=== PATIENT | male | born 1965 | race Caucasian/White ===

== ENCOUNTER 2017-04-09 11:00 | Emergency (ER) | payer OTHER ==
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
[2017-04-09] MEDS ORDERED: methylPREDNISolone Sod Succ/PF 125 MG/2 ML VIAL ONE (11:15)
--- NOTE | 2017-04-09 12:04 | RAD ---
CHEST 1 VIEW: HISTORY: Shortness of breath. Dyspnea. COMPARISON: Chest 1 view 03/09/17. FINDINGS: Lungs are clear. No pneumothorax or effusion. Cardiac silhouette and mediastinal contours are with in normal limits. IMPRESSION: No acute intrathoracic abnormality. No significant change. POS: [facility]
== END 2017-04-09 11:45 | disposition home or self-care (01) ==
LOC: ERS 11:00
DX: J44.1 Chronic obstructive pulmonary disease with (acute) exacerbation (principal); F17.210 Nicotine dependence, cigarettes, uncomplicated; F41.9 Anxiety disorder, unspecified; H54.40 Blindness, one eye, unspecified eye
CPT/HCPCS: 71010; 93005; 94660; 94760; 96374; J2930

== ENCOUNTER 2017-04-20 08:34 | Emergency (ER) | payer OTHER ==
[2017-04-20 09:01] LABS: #Basophils 0.1 thou/uL (0.0-0.2); #Eosinphils 0.4 thou/uL (0.0-0.7); #Neutrophils 8.4 thou/uL (1.40-6.50); %Basophils 0.7 % (0.0-1.0); %Eosinophils 2.8 % (0.0-10.0); %Lymphocytes 31.3 % (21.0-51.0); %Monocytes 12.3 % (0.0-10.0); Hematocrit 48.5 % (42.0-52.0); Red Blood Cell (RBC) Count 4.93 mill/uL (4.70-6.10); White Blood Cell (WBC) Count 15.9 thou/uL (4.8-10.8)
[2017-04-20 09:18] LABS: ALT (SGPT) 28 U/L (8-55); AST (SGOT) 21 U/L (5-34); Alkaline Phosphatase 81 U/L (40-150); Anion Gap 11 mmol/L (10-20); BUN (Urea Nitrogen) 13 mg/dL (8.4-25.7); Bilirubin, Total 0.5 mg/dL (0.2-1.2); Calc. Creatinine Clearance 0 mL/min (70-130); Calcium 8.7 mg/dL (7.8-10.44); Carbon Dioxide 23 mmol/L (22-29); Chloride 106 mmol/L (98-107); Estimated GFR-MDRD 83; Protein, Total 6.7 g/dL (6.0-8.3)
[2017-04-20 09:25] LABS: Troponin I Less than 0.010 ng/mL (< 0.028)
--- NOTE | 2017-04-20 09:33 | RAD ---
PORTABLE AP CHEST X-RAY: 04/20/2017 HISTORY: Shortness of breath. COMPARISON: 04/09/2017 FINDINGS: The cardiac silhouette and pulmonary vasculature are within normal limits. The lungs remain clear. There has been no interval change from prior study. IMPRESSION: No acute cardiopulmonary process. POS: [facility]
== END 2017-04-20 10:50 | disposition home or self-care (01) ==
LOC: ERS 08:34
DX: J44.1 Chronic obstructive pulmonary disease with (acute) exacerbation (principal); H54.40 Blindness, one eye, unspecified eye; F41.9 Anxiety disorder, unspecified; F17.210 Nicotine dependence, cigarettes, uncomplicated; Z79.899 Other long term (current) drug therapy
CPT/HCPCS: 36415; 71010; 80053; 82553; 83880; 84484; 85025; 93005

== ENCOUNTER 2017-04-30 08:34 | Emergency (ER) | payer OTHER ==
[2017-04-30] MEDS ORDERED: Water For Inject, Bacteriostat 30 ML ONE (08:44)
[2017-04-30] MEDS ORDERED: methylPREDNISolone Sod Succ/PF 125 MG/2 ML VIAL ONE (08:44)
== END 2017-04-30 09:17 | disposition home or self-care (01) ==
LOC: ERS 08:34
DX: J44.1 Chronic obstructive pulmonary disease with (acute) exacerbation (principal); F41.9 Anxiety disorder, unspecified; F17.210 Nicotine dependence, cigarettes, uncomplicated
CPT/HCPCS: 93005; 94640; 96374; J2930; J7620

== ENCOUNTER 2017-05-22 08:13 | Emergency (ER) | payer OTHER ==
[2017-05-22] MEDS ORDERED: Lorazepam 2 MG/ML VIAL ONE (08:34)
[2017-05-22 08:57] LABS: #Basophils 0.1 thou/uL (0.0-0.2); #Eosinphils 0.3 thou/uL (0.0-0.7); #Lymphocytes 2.9 thou/uL (1.20-3.40); #Monocytes 1.2 thou/uL (0.11-0.59); #Neutrophils 7.7 thou/uL (1.40-6.50); %Basophils 0.6 % (0.0-1.0); %Eosinophils 2.1 % (0.0-10.0); %Lymphocytes 24.1 % (21.0-51.0); Hematocrit 48.5 % (42.0-52.0); Mean Platelet Volume 6.1 fL (7.4-10.4); Red Blood Cell (RBC) Count 4.93 mill/uL (4.70-6.10); White Blood Cell (WBC) Count 12.2 thou/uL (4.8-10.8)
--- NOTE | 2017-05-22 09:17 | RAD ---
PORTABLE CHEST: HISTORY: Shortness of breath. COMPARISON: 05/10/17 study. FINDINGS: Heart size and mediastinum are within normal limits. The lungs are clear of infiltrates. No signifi cant bony findings. IMPRESSION: No active intrathoracic disease. POS: [facility]
[2017-05-22 09:21] LABS: Troponin I Less than 0.010 ng/mL (< 0.028)
[2017-05-22 09:23] LABS: ALT (SGPT) 31 U/L (8-55); AST (SGOT) 25 U/L (5-34); Alkaline Phosphatase 74 U/L (40-150); Anion Gap 12 mmol/L (10-20); BUN (Urea Nitrogen) 13 mg/dL (8.4-25.7); Bilirubin, Total 0.5 mg/dL (0.2-1.2); CK (CPK) 95 U/L (30-200); Calc. Creatinine Clearance 0 mL/min (70-130); Calcium 8.9 mg/dL (7.8-10.44); Carbon Dioxide 27 mmol/L (22-29); Chloride 104 mmol/L (98-107); Estimated GFR-MDRD 89; Globulin 2.9 g/dL (2.4-3.5); Protein, Total 6.7 g/dL (6.0-8.3)
[2017-05-22] MEDS ORDERED: methylPREDNISolone Sod Succ/PF 125 MG/2 ML VIAL ONE (10:04)
[2017-05-22] MEDS ORDERED: Water For Inject, Bacteriostat 30 ML ONE (10:05)
== END 2017-05-22 10:22 | disposition home or self-care (01) ==
LOC: ERS 08:13
DX: J44.1 Chronic obstructive pulmonary disease with (acute) exacerbation (principal); F17.210 Nicotine dependence, cigarettes, uncomplicated; Z79.52 Long term (current) use of systemic steroids; Z79.899 Other long term (current) drug therapy
CPT/HCPCS: 36415; 71010; 80053; 82553; 83880; 84484; 85025; 87040; 93005; 94640; 96374; 96375; 99406; J2060; J2930; J7620

== ENCOUNTER 2017-05-31 07:24 | Emergency (ER) | payer OTHER ==
[2017-05-31] MEDS ORDERED: predniSONE 20 MG TAB ONE (07:51)
== END 2017-05-31 07:55 | disposition home or self-care (01) ==
LOC: ERS 07:24
DX: J44.0 Chronic obstructive pulmonary disease with (acute) lower respiratory infection (principal); F41.9 Anxiety disorder, unspecified; F17.210 Nicotine dependence, cigarettes, uncomplicated; Z79.899 Other long term (current) drug therapy
CPT/HCPCS: 99284; J7506

== ENCOUNTER 2017-06-09 07:20 | Emergency (ER) | payer OTHER ==
[2017-06-09] MEDS ORDERED: Water For Inject, Bacteriostat 30 ML ONE (07:37)
[2017-06-09] MEDS ORDERED: methylPREDNISolone Sod Succ/PF 125 MG/2 ML VIAL ONE (07:37)
[2017-06-09] MEDS ORDERED: Lorazepam 2 MG/ML VIAL ONE (08:00)
[2017-06-09 08:01] LABS: #Basophils 0.1 thou/uL (0.0-0.2); #Eosinphils 0.1 thou/uL (0.0-0.7); #Lymphocytes 3.9 thou/uL (1.20-3.40); #Monocytes 1.5 thou/uL (0.11-0.59); #Neutrophils 7.9 thou/uL (1.40-6.50); %Eosinophils 0.6 % (0.0-10.0); %Lymphocytes 29.1 % (21.0-51.0); %Monocytes 10.9 % (0.0-10.0); Hematocrit 46.9 % (42.0-52.0); Mean Platelet Volume 6.2 fL (7.4-10.4); Red Blood Cell (RBC) Count 4.75 mill/uL (4.70-6.10); White Blood Cell (WBC) Count 13.5 thou/uL (4.8-10.8)
[2017-06-09 08:28] LABS: ALT (SGPT) 27 U/L (8-55); AST (SGOT) 18 U/L (5-34); Alkaline Phosphatase 68 U/L (40-150); Anion Gap 10 mmol/L (10-20); BUN (Urea Nitrogen) 18 mg/dL (8.4-25.7); Bilirubin, Total 0.5 mg/dL (0.2-1.2); Calc. Creatinine Clearance 0 mL/min (70-130); Calcium 8.9 mg/dL (7.8-10.44); Carbon Dioxide 25 mmol/L (22-29); Chloride 106 mmol/L (98-107); Estimated GFR-MDRD Greater than 90; Globulin 2.6 g/dL (2.4-3.5); Protein, Total 6.4 g/dL (6.0-8.3)
[2017-06-09 08:32] LABS: Troponin I Less than 0.010 ng/mL (< 0.028)
--- NOTE | 2017-06-09 08:47 | RAD ---
PORTABLE UPRIGHT FRONTAL CHEST: Date: 06/09/17 COMPARISON: 05/22/17. HISTORY: COPD exacerbation. FINDINGS: There is attenuation of the bronchopulmonary vasculature and pulmonary hyperinflation with increased linear interstitial density, consistent with the provided history of COPD. No pneumothorax, pleural f luid, focal consolidation, or alveolar edema. IMPRESSION: Hyperinflated lungs with increased interstitial density. No focal consolidation or alveolar edema. POS: [facility]
--- NOTE | 2017-06-13 17:06 | EKG ---
Test Reason : Blood Pressure : / mmHG Vent. Rate : 075 BPM Atrial Rate : 075 BPM P-R Int : 176 ms QRS Dur : 074 ms QT Int : 352 ms P-R-T Axes : 083 -19 027 degrees QTc Int : 393 ms Normal sinus rhythm Normal ECG Confirmed by PALMIRA SPANN ([id number]), map editor PEYMAN RASHID ([id number]) on 06/13/2017 5:05:54 PM Referred By: MARIA INES Confirmed By:PALMIRA SPANN
== END 2017-06-09 11:39 | disposition short-term general hospital (02) ==
LOC: ERS 07:20
DX: J44.1 Chronic obstructive pulmonary disease with (acute) exacerbation (principal); F41.9 Anxiety disorder, unspecified; F17.210 Nicotine dependence, cigarettes, uncomplicated
CPT/HCPCS: 36415; 71010; 80053; 82553; 83605; 84484; 85025; 93005; 94640; 94660; 94760; 96374; 96375; J2060; J2930; J7620

== ENCOUNTER 2017-06-19 08:28 | Emergency (ER) | payer OTHER | END 2017-06-19 08:57 | disposition home or self-care (01) | LOC: ERS 08:28 | DX: L72.3 Sebaceous cyst (principal); R06.2 Wheezing; J43.9 Emphysema, unspecified; H54.7 Unspecified visual loss; F41.9 Anxiety disorder, unspecified; F17.210 Nicotine dependence, cigarettes, uncomplicated | CPT/HCPCS: 99282 ==

== ENCOUNTER 2017-06-24 08:25 | Emergency (ER) | payer OTHER | END 2017-06-24 08:50 | disposition home or self-care (01) | LOC: ERS 08:25 | DX: L72.3 Sebaceous cyst (principal); J44.9 Chronic obstructive pulmonary disease, unspecified; F41.9 Anxiety disorder, unspecified; F17.210 Nicotine dependence, cigarettes, uncomplicated; Z79.899 Other long term (current) drug therapy | CPT/HCPCS: 99281 ==

== ENCOUNTER 2017-06-28 06:26 | Emergency (ER) | payer OTHER ==
[2017-06-28] MEDS ORDERED: Dexamethasone 4 MG TAB ONE (06:36)
[2017-06-28] MEDS ORDERED: Magnesium Sulfate 2 GM/100 ML BAG ONE (06:36)
[2017-06-28] MEDS ORDERED: Dexamethasone 10 MG/ML VIAL ONE (06:37)
[2017-06-28 06:46] LABS: Oxyhemoglobin 96.7 % (94.0-97.0); Sodium 138 mmol/L (135-148)
[2017-06-28 06:47] LABS: Modified Allen's Test POSITIVE; Vent NO
[2017-06-28] MEDS ORDERED: Albuterol Sulfate 2.5 mg/0.5 ml Neb ONE (06:58)
[2017-06-28 07:06] LABS: #Basophils 0.1 thou/uL (0.0-0.2); #Eosinphils 0.3 thou/uL (0.0-0.7); #Lymphocytes 3.3 thou/uL (1.20-3.40); #Monocytes 1.2 thou/uL (0.11-0.59); #Neutrophils 6.5 thou/uL (1.40-6.50); %Basophils 0.9 % (0.0-1.0); %Eosinophils 2.5 % (0.0-10.0); %Monocytes 10.6 % (0.0-10.0); Mean Platelet Volume 6.3 fL (7.4-10.4); Red Blood Cell (RBC) Count 4.74 mill/uL (4.70-6.10); White Blood Cell (WBC) Count 11.3 thou/uL (4.8-10.8)
[2017-06-28 07:27] LABS: ALT (SGPT) 34 U/L (8-55); AST (SGOT) 24 U/L (5-34); Alkaline Phosphatase 74 U/L (40-150); Anion Gap 11 mmol/L (10-20); BUN (Urea Nitrogen) 12 mg/dL (8.4-25.7); Bilirubin, Total 0.7 mg/dL (0.2-1.2); CK (CPK) 97 U/L (30-200); Calc. Creatinine Clearance 0 mL/min (70-130); Calcium 8.8 mg/dL (7.8-10.44); Carbon Dioxide 24 mmol/L (22-29); Chloride 106 mmol/L (98-107); Estimated GFR-MDRD Greater than 90; Globulin 2.6 g/dL (2.4-3.5); Lipase 29 U/L (8-78); Protein, Total 6.5 g/dL (6.0-8.3)
[2017-06-28 07:31] LABS: Troponin I 0.011 ng/mL (< 0.028)
--- NOTE | 2017-06-28 10:57 | RAD ---
AP VIEW CHEST: Date: 06/28/17 HISTORY: Dyspnea. FINDINGS: Comparison made to previous exam from 06/09/17. AP view of chest demonstrates the lungs to be well aerated. No evidence of active intrathoracic disea se is seen. No evidence of effusions, pneumonia, or pneumothorax seen. IMPRESSION: Unremarkable AP view of chest. POS: [facility]
== END 2017-06-28 08:07 | disposition home or self-care (01) ==
LOC: ERS 06:26
DX: J44.1 Chronic obstructive pulmonary disease with (acute) exacerbation (principal); F41.9 Anxiety disorder, unspecified; F17.210 Nicotine dependence, cigarettes, uncomplicated
CPT/HCPCS: 36415; 71010; 80053; 82550; 82553; 82805; 83605; 83690; 83880; 84484; 85025; 87040; 93005; 94640; 94660; 96365; 96375; 99406; J1100; J3475; J7611; J7620; J8540

== ENCOUNTER 2017-07-04 06:29 | Emergency (ER) | payer OTHER ==
[2017-07-04] MEDS ORDERED: methylPREDNISolone Sod Succ/PF 125 MG/2 ML VIAL ONE (06:39)
== END 2017-07-04 06:54 | disposition home or self-care (01) ==
LOC: ERS 06:29
DX: J44.1 Chronic obstructive pulmonary disease with (acute) exacerbation (principal); F41.9 Anxiety disorder, unspecified; F17.210 Nicotine dependence, cigarettes, uncomplicated
CPT/HCPCS: 96374; J2930

== ENCOUNTER 2017-07-05 00:40 | Emergency (ER) | payer OTHER | END 2017-07-05 02:35 | disposition home or self-care (01) | LOC: ERS 00:40 | DX: F41.9 Anxiety disorder, unspecified (principal); J43.9 Emphysema, unspecified; F17.210 Nicotine dependence, cigarettes, uncomplicated | CPT/HCPCS: 96374; 99406; J2930 ==

== ENCOUNTER 2017-07-18 08:20 | Emergency (ER) | payer OTHER ==
[2017-07-18] MEDS ORDERED: methylPREDNISolone Sod Succ/PF 125 MG/2 ML VIAL ONE (08:59)
[2017-07-18] MEDS ORDERED: Sterile Water 10 ML ONE (08:59)
--- NOTE | 2017-08-01 18:41 | EKG ---
Test Reason : SOB Blood Pressure : / mmHG Vent. Rate : 068 BPM Atrial Rate : 068 BPM P-R Int : 166 ms QRS Dur : 082 ms QT Int : 348 ms P-R-T Axes : 057 -27 028 degrees QTc Int : 370 ms Normal sinus rhythm Normal ECG Confirmed by MILAGROS CARSON MD ([id number]), editorial project manager PEYMAN RASHID ([id number]) on 08/01/2017 6:40:23 PM Referred By: Confirmed By:MILAGROS CARSON MD
== END 2017-07-18 09:48 | disposition home or self-care (01) ==
LOC: ERS 08:20
DX: J44.1 Chronic obstructive pulmonary disease with (acute) exacerbation (principal); F41.9 Anxiety disorder, unspecified; F17.210 Nicotine dependence, cigarettes, uncomplicated; Z79.899 Other long term (current) drug therapy
CPT/HCPCS: 93005; 94640; 94760; 96374; 99406; A4216; J2930; J7620

== ENCOUNTER 2017-07-25 08:07 | Emergency (ER) | payer OTHER | END 2017-07-25 09:00 | disposition left against medical advice (07) | LOC: ERS 08:07 | DX: R50.9 Fever, unspecified (principal); J44.9 Chronic obstructive pulmonary disease, unspecified; F41.9 Anxiety disorder, unspecified; F17.210 Nicotine dependence, cigarettes, uncomplicated; Z79.899 Other long term (current) drug therapy | CPT/HCPCS: 99283 ==

== ENCOUNTER 2017-08-19 08:18 | Emergency (ER) | payer OTHER ==
[2017-08-19] MEDS ORDERED: methylPREDNISolone Sod Succ/PF 125 MG/2 ML VIAL ONE (08:39)
== END 2017-08-19 09:35 | disposition home or self-care (01) ==
LOC: ERS 08:18
DX: J44.1 Chronic obstructive pulmonary disease with (acute) exacerbation (principal); F17.210 Nicotine dependence, cigarettes, uncomplicated; Z79.899 Other long term (current) drug therapy
CPT/HCPCS: 94640; 94760; 96374; J2930; J7620

== ENCOUNTER 2017-08-21 06:48 | Emergency (ER) | payer OTHER ==
[2017-08-21] MEDS ORDERED: Ibuprofen 200 MG TAB ONE (07:41)
[2017-08-21 07:47] LABS: White Blood Cell (WBC) Count 22.4 thou/uL (4.8-10.8)
--- NOTE | 2017-08-21 07:47 | RAD ---
PORTABLE CHEST 1 VIEW: Date: 08/21/17 Time: 0739 hours HISTORY: Dyspnea. FINDINGS/IMPRESSION: Comparison made with exam of 06/28/17. The heart size is normal. No lobar consolidation, pneumothorax, or pleural effusions are seen. There is prominence of the interstitial markings. POS: [facility]
[2017-08-21 08:06] LABS: Band 2 % (5-11); Hemoglobin 15.4 g/dL (14.0-18.0); Lymphocytes 9 % (21-51); MDiff Complete? YES; Mean Corpuscular HGB CONC 34.2 g/dL (32.0-36.0); Mean Corpuscular Hemoglobin 33.7 pg (27.0-31.0); Mean Corpuscular Volume 98.4 fl (80.0-94.0); Mean Platelet Volume 6.1 fL (7.4-10.4); Monocytes 3 % (0-10); Neutrophil 82 % (42-75); Platelet Count 346 thou/uL (130-400); RBC Distribution Width 12.7 % (11.5-14.5); RBC Morphology Normal; Reactive Lymphocytes 4 % (0-10); Red Blood Cell (RBC) Count 4.59 mill/uL (4.70-6.10)
[2017-08-21 08:07] LABS: ALT (SGPT) 29 U/L (8-55); AST (SGOT) 16 U/L (5-34); Alkaline Phosphatase 82 U/L (40-150); Anion Gap 12 mmol/L (10-20); BUN (Urea Nitrogen) 10 mg/dL (8.4-25.7); Bilirubin, Total 1.3 mg/dL (0.2-1.2); Calc. Creatinine Clearance 0 mL/min (70-130); Calcium 9.2 mg/dL (7.8-10.44); Carbon Dioxide 25 mmol/L (22-29); Chloride 104 mmol/L (98-107); Estimated GFR-MDRD Greater than 90; Globulin 2.8 g/dL (2.4-3.5); Glucose 85 mg/dL (70-105); Potassium 4.1 mmol/L (3.5-5.1); Protein, Total 6.8 g/dL (6.0-8.3); Sodium 137 mmol/L (136-145)
[2017-08-21] MEDS ORDERED: predniSONE 20 MG TAB ONE (08:58)
== END 2017-08-21 08:57 | disposition home or self-care (01) ==
LOC: ERS 06:48
DX: J40 Bronchitis, not specified as acute or chronic (principal); F41.9 Anxiety disorder, unspecified; F17.210 Nicotine dependence, cigarettes, uncomplicated; Z79.52 Long term (current) use of systemic steroids
CPT/HCPCS: 36415; 71045; 80053; 85025; 87804; 94640; J7506; J7620

== ENCOUNTER 2017-08-22 07:25 | Observation (INO) | payer OTHER ==
[2017-08-22] MEDS ORDERED: methylPREDNISolone Sod Succ/PF 125 MG/2 ML VIAL ONE (07:46)
[2017-08-22 07:48] LABS: #Basophils 0.1 thou/uL (0.0-0.2); #Monocytes 3.1 thou/uL (0.11-0.59); #Neutrophils 20.3 thou/uL (1.40-6.50); %Basophils 0.2 % (0.0-1.0); %Eosinophils 0.1 % (0.0-10.0); %Lymphocytes 11.4 % (21.0-51.0); %Monocytes 11.7 % (0.0-10.0); %Neutrophils 76.6 % (42.0-75.0); Hemoglobin 15.4 g/dL (14.0-18.0); Mean Corpuscular HGB CONC 34.8 g/dL (32.0-36.0); Mean Corpuscular Hemoglobin 33.8 pg (27.0-31.0); Mean Corpuscular Volume 97.1 fl (80.0-94.0); Mean Platelet Volume 6.3 fL (7.4-10.4); Platelet Count 365 thou/uL (130-400); RBC Distribution Width 12.5 % (11.5-14.5); Red Blood Cell (RBC) Count 4.54 mill/uL (4.70-6.10); White Blood Cell (WBC) Count 26.5 thou/uL (4.8-10.8)
[2017-08-22 08:06] LABS: ALT (SGPT) 25 U/L (8-55); AST (SGOT) 17 U/L (5-34); Alkaline Phosphatase 78 U/L (40-150); Anion Gap 12 mmol/L (10-20); BUN (Urea Nitrogen) 14 mg/dL (8.4-25.7); Bilirubin, Total 1.1 mg/dL (0.2-1.2); Calc. Creatinine Clearance 0 mL/min (70-130); Calcium 9.3 mg/dL (7.8-10.44); Carbon Dioxide 23 mmol/L (22-29); Chloride 103 mmol/L (98-107); Estimated GFR-MDRD Greater than 90; Globulin 3.1 g/dL (2.4-3.5); Glucose 95 mg/dL (70-105); Potassium 3.8 mmol/L (3.5-5.1); Protein, Total 7.1 g/dL (6.0-8.3); Sodium 134 mmol/L (136-145)
--- NOTE | 2017-08-22 08:24 | RAD ---
CHEST 1 VIEW: History Dyspnea. COMPARISON: 08/21/17. FINDINGS: Cardiac silhouette is magnified by projection. Pulmonary vasculature is upper limits of normal. Ill -defined patchy parenchymal opacity is now present at each lung base and at the left perihilar level. There is no evidence of pneumothorax. Mediastinum is midline. IMPRESSION: Developing patchy infiltrates within each lung as detailed above. Clinical correlation regarding oth er signs and symptoms of developing bilateral pneumonitis is required. POS: [facility]
[2017-08-22 08:30] LABS: Actual Bicarbonate (HCO3a) 24.1 mEq/L (22-26); Base Excess (BEa) 0.3 mEq/L (0 (+/-) 2.5); CO2 Tension 36.3 mmHg (35.0-45.0); O2 Tension (PaO2) 174.6 mmHg (80.0-100.0); pH, Arterial 7.44 (7.35-7.45)
[2017-08-22 08:31] LABS: ALV-art Gradient 498.025 (0-20); Analyzer IN Cardio ER; Calcium, Ionized 1.2 mmol/L (1.12-1.30); Hematocrit-ABG 47.8 % (42.0-52.0); Puncture Site L.R.
[2017-08-22] MEDS ORDERED: Acetaminophen 500 MG TAB ONE (09:56)
[2017-08-22] MEDS ORDERED: Benzonatate 100 MG CAP ONE ×2 (09:57→09:58)
[2017-08-22] MEDS ORDERED: guaiFENesin/DM ER PO SCH (10:00)
[2017-08-22] MEDS ORDERED: cefTRIAXone\\ROCEPHIN 2 GM in Sodium Chloride 0.9% 100 ML IVPB SCH (10:00)
[2017-08-22] MEDS ORDERED: Benzonatate 100 MG CAP PO SCH (10:00)
[2017-08-22] MEDS ORDERED: Azithromycin 500 MG, Admixture Fee 1 EACH in Sodium Chloride 0.9% 250 ML 250 ML IVPB SCH (10:15)
[2017-08-22] MEDS ORDERED: Ondansetron HCl/PF 4 MG/2 ML Vial IVP PRN (12:49)
[2017-08-22] MEDS ORDERED: Ondansetron ODT 4 MG TAB PO PRN (12:50)
[2017-08-22] MEDS ORDERED: Acetaminophen 325 MG TAB PO PRN ×2 (12:50→12:58)
[2017-08-22] MEDS ORDERED: Senokot 8.6 MG TAB PO PRN (12:58)
[2017-08-22] MEDS ORDERED: Levofloxacin 750 mg/D5W 500 MG in Premix Bag 1 BAG IVPB SCH (13:00)
[2017-08-22] MEDS: Sodium Chloride 0.9% 1,000 ML IV SCH (13:30)
[2017-08-22 14:20] VITALS: BMI 28.8
--- NOTE | 2017-08-22 15:22 | HP ---
REASON FOR ADMISSION: Acute on chronic COPD exacerbation. HISTORY OF PRESENT ILLNESS: The patient gives history of shortness of breath from last 2-3 days now, which has been progressively getting worse. He has come multiple times to emergency room. The kobi ent is known to be noncompliant and usually comes to the emergency room for nebulizations. He has a known history of COPD and continues to smoke and is noncompliant with inhalers and nebulizers/medicat ions. No fever as such. The patient states he is currently staying in a motel at present. He is cu rrently comfortable on 3 liters nasal cannula here in the ER. PAST MEDICAL AND SURGICAL HISTORY: History of COPD with ongoing smoking and noncompliance with medic ations, anxiety disorder, right second finger surgery. CURRENT MEDICATIONS: The patient states that he takes inhalers and he cannot recall the name. He do es not take any other medications. ALLERGIES: No known drug allergies. PERSONAL HISTORY: He continues to smoke half to one pack a day. The patient denies any substance ab use at present. States he quit cocaine more than a year ago. Does not abuse alcohol. Currently, he is staying in a motel. FAMILY HISTORY: Brother has a history of coronary artery disease. There is also history of COPD and cancer in the family. REVIEW OF SYSTEMS: The following complete review of systems was negative, unless otherwise mentioned in the HPI or below: Constitutional: Weight loss or gain, ability to conduct usual activities. Sk in: Rash, itching. Eyes: Double vision, pain. ENT/Mouth: Nose bleeding, neck stiffness, pain, te nderness. Cardiovascular: Palpitations, dyspnea on exertion, orthopnea. Respiratory: Shortness of breath, wheezing, cough, hemoptysis, fever or night sweats. Gastrointestinal: Poor appetite, abdom inal pain, heartburn, nausea, vomiting, constipation, or diarrhea. Genitourinary: Urgency, frequenc y, dysuria, nocturia. Musculoskeletal: Pain, swelling. Neurologic/Psychiatric: Anxiety, depressio n. Allergy/Immunologic: Skin rash, bleeding tendency. PHYSICAL EXAMINATION: GENERAL: The patient is a 52-year-old male who is currently not in any acute distress. VITAL SIGNS: Blood pressure 170/112, pulse 100 per minute, respiratory rate 26 per minute, temperatu re 98.5 degrees Fahrenheit, saturating 94% on 2 liters nasal cannula. NECK: Supple. No elevated JVD. HEENT: Extraocular muscles intact. Pupils reacting to light. Oral cavity, mucous membranes are dry . No exudates or congestion. CARDIOVASCULAR: S1, S2 heard. Regular rhythm. RESPIRATORY: Air entry 1+ bilaterally. Scattered wheezes plus bilaterally. ABDOMEN: Soft. Bowel sounds heard. No tenderness, rigidity or guarding. EXTREMITIES: No peripheral edema or calf tenderness. VASCULAR SYSTEM: Peripheral pulses 1+ bilateral. No ischemic ulcerations or gangrene. CENTRAL NERVOUS SYSTEM: No gross focal deficits seen. The patient is alert, awake, oriented well. PSYCHIATRIC: The patient's mood is euthymic. No hallucinations or delusions. LABORATORY AND X-RAY FINDINGS: White count of 26, H and H 15 and 44, platelet count 365,000 with 76% neutrophils. Blood gas done shows a pH of 7.4, pCO2 36, pO2 174. BUN 14, creatinine 0.8, glucose i s 95. Liver enzymes within normal limits. Albumin is 4.0. Chest x-ray done shows questionable patc hy infiltrates. CLINICAL IMPRESSION AND PLAN: The patient will be under observation on medical floor for acute on ch ronic, chronic obstructive pulmonary disease exacerbation. It is unclear if he has pneumonia. The x -ray most likely shows chronic fibrotic changes in the lungs. He will be placed on DuoNeb q.6 hourly , Solu-Medrol 40 mg IV q.6 hourly and empiric Levaquin for now. He will be on Pepcid 20 mg twice keisha ly as well. We will gently hydrate him with normal saline at 50 mL per hour. We will closely monito r him on medical floor.
[2017-08-22] MEDS: Guaifenesin DM 100-10/5 ML UDCUP PO PRN ×2 (16:07→19:37)
[2017-08-22] MEDS: Mometasone/Formoterol 120 PUFF INHALER INH SCH (19:25)
[2017-08-22] MEDS: Famotidine 20 MG TAB PO SCH (19:37)
[2017-08-23 04:29] LABS: #Lymphocytes 1.2 thou/uL (1.20-3.40); #Monocytes 1.1 thou/uL (0.11-0.59); #Neutrophils 18.8 thou/uL (1.40-6.50); %Basophils 0.2 % (0.0-1.0); %Eosinophils 0.1 % (0.0-10.0); %Lymphocytes 5.7 % (21.0-51.0); %Neutrophils 89.1 % (42.0-75.0); Hemoglobin 14.5 g/dL (14.0-18.0); Mean Corpuscular HGB CONC 33.4 g/dL (32.0-36.0); Mean Corpuscular Hemoglobin 32.7 pg (27.0-31.0); Mean Corpuscular Volume 98.1 fl (80.0-94.0); Mean Platelet Volume 6.3 fL (7.4-10.4); Platelet Count 371 thou/uL (130-400); RBC Distribution Width 12.2 % (11.5-14.5); Red Blood Cell (RBC) Count 4.44 mill/uL (4.70-6.10); White Blood Cell (WBC) Count 21.2 thou/uL (4.8-10.8)
[2017-08-23 04:51] LABS: Anion Gap 10 mmol/L (10-20); BUN (Urea Nitrogen) 15 mg/dL (8.4-25.7); Calc. Creatinine Clearance 143 mL/min (70-130); Calcium 9.2 mg/dL (7.8-10.44); Carbon Dioxide 25 mmol/L (22-29); Chloride 105 mmol/L (98-107); Estimated GFR-MDRD Greater than 90; Glucose 138 mg/dL (70-105); Potassium 4.3 mmol/L (3.5-5.1); Sodium 136 mmol/L (136-145)
[2017-08-23] MEDS: Sodium Chloride 0.9% 1,000 ML IV SCH (05:12)
[2017-08-23] MEDS: Mometasone/Formoterol 120 PUFF INHALER INH SCH ×2 (07:20→18:08)
[2017-08-23] MEDS: Guaifenesin DM 100-10/5 ML UDCUP PO PRN (08:19)
[2017-08-23] MEDS: Famotidine 20 MG TAB PO SCH ×2 (08:19→19:19)
[2017-08-23] MEDS: Enoxaparin Sodium 40 MG/0.4 ML SYRINGE SC SCH (08:19)
[2017-08-23] MEDS ORDERED: Zolpidem Tartrate 5 MG TAB PO PRN (09:57)
[2017-08-23] MEDS ORDERED: Guaifenesin DM 100-10/5 ML UDCUP PO SCH (10:08)
--- NOTE | 2017-08-23 10:52 | PRG ---
DATE OF SERVICE: 08/23/2017 SUBJECTIVE: The patient seen and examined at bedside. He is still very short of breath. He has abi e cough, which is productive of yellowish phlegm. He took shower this morning and he was able to mendez dle this despite of quite significant amount of shortness of breath he is still presenting. OBJECTIVE: VITAL SIGNS: Blood pressure is 133/85, pulse is 88, respiration rate 24, O2 saturation is 93% on 2 l iters by nasal cannula. His temperature is 97.7. HEENT: Atraumatic, normocephalic. Right eye is blind. Conjunctivae pinkish. Sclerae nonicteric. Oral mucosa is moist. NECK: Supple, no lymphadenopathy. LUNGS: With few rales bilaterally, no wheezing. CARDIOVASCULAR: S1, S2 normal, no S3, no S4, no any murmur. ABDOMEN: Soft, nontender, bowel sounds are present, no organomegaly. EXTREMITIES: No clubbing, cyanosis or edema. NEUROLOGIC: He is alert and oriented x4. There is no sensorimotor deficit. Cranial nerves are inta ct. LABORATORY DATA: White count is 21.2, hemoglobin 14.5, hematocrit 43.5, platelet count is 371, 89.1% neutrophils. Normal chemistry, glucose 138. Microbiology: Two blood cultures are negative so far. Gram stain his sputum is pending. IMPRESSION: Exacerbation of chronic obstructive pulmonary disease. I do not think he has pneumonia. PLAN: We will continue his IV steroids. We will continue DuoNebs. We will continue his Levaquin an d inhaled steroids. We will continue his IV normal saline at 50 mL per hour. We will start him on A mbien 5 mg at bedtime p.r.n. for insomnia if he complains about the problem and we will obtain chest x-ray tomorrow morning and continue O2.
[2017-08-23] MEDS: Guaifenesin DM 100-10/5 ML UDCUP PO SCH ×3 (12:55→21:16)
[2017-08-24] MEDS: Guaifenesin DM 100-10/5 ML UDCUP PO SCH ×3 (00:11→10:22)
[2017-08-24] MEDS: Sodium Chloride 0.9% 1,000 ML IV SCH (05:40)
[2017-08-24] MEDS: Mometasone/Formoterol 120 PUFF INHALER INH SCH (06:23)
[2017-08-24 08:01] VITALS: BP 139/97; TEMP 97.7
[2017-08-24] MEDS: Famotidine 20 MG TAB PO SCH (09:29)
[2017-08-24] MEDS: Enoxaparin Sodium 40 MG/0.4 ML SYRINGE SC SCH (09:29)
--- NOTE | 2017-08-24 22:57 | DIS ---
DATE OF ADMISSION: 08/22/2017 DATE OF DISCHARGE: 08/24/2017 DISCHARGE DIAGNOSES: Acute on chronic respiratory failure with hypoxia, COPD exacerbation. SECONDARY DIAGNOSES: Anxiety disorder, medication nonadherence. HOSPITAL COURSE: Mr. Antonieta Peterson is a 52-year-old male, who presented to the emergency room with shortness of breath for 2 days' duration, which was getting progressively worse. He has be en at the emergency room several times with the same presentation. He is known to be noncompliant an d comes to the emergency room for nebulizations. He has a history of COPD and continues to smoke and does not take his inhalers or nebulizers as prescribed. There is no history of fever. He has chron ic respiratory failure and uses 2.5 liters of oxygen at home. HOSPITAL COURSE: He was admitted for acute on chronic respiratory failure with hypoxia, started on o xygen supplementation, nebulizer therapy, steroids, and antibiotics. He improved with medications an d by 08/24/2017, he felt well enough to leave. He was back to his home oxygen requirements (was satu rating well on 2 liters of home oxygen and states that he has all his medications and nebulizers at [facility]). 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 Patient was stable on physical examination and had no acute issues. No wheezing on examination and was deemed stable for discharge. He was encour aged to take all his medications as prescribed and to quit smoking. DISCHARGE MEDICATIONS: Guaifenesin 50 mg q.4 h., Levofloxacin 250 mg daily, ipratropium/albuterol guerrero lfate 3 mL nebulizer 4 times daily as needed, albuterol sulfate 0.63 mg nebulizers every 4 hours as n eeded for shortness of breath and wheezing, prednisone 60 mg orally every morning with breakfast. PHYSICAL EXAMINATION: He was examined on the day of discharge. VITAL SIGNS: Stable. GENERAL: Not in acute distress, lying comfortably in bed. HEENT: Normocephalic, atraumatic. Moist mucous membrane. EOMI, PERRLA. NECK: Supple. Full range of motion. RESPIRATORY: Vesicular breath sound bilaterally. No wheezing or rales. CARDIOVASCULAR: S1, S2 only with no murmurs, rubs, or gallops. ABDOMEN: Bowel sounds positive, nontender, nondistended, no organomegaly. MUSCULOSKELETAL: No skeletal abnormalities. Moves all extremities spontaneously. SKIN: Warm and well perfused. No rashes or lesions. NEUROLOGIC: Alert and well oriented. No focal deficit. PSYCHIATRIC: Normal mood and affect. LABORATORY DATA: CBC showed leukocytosis (steroid induced, otherwise unremarkable). Serum chemistry also unremarkable. IMAGING: Chest x-ray done on day of admission showed developing patchy infiltrates within each lung base and at the left perihilar level. CONSULTS: None. CONDITION AT DISCHARGE: Stable and improved. PROCEDURES: None. DIET: Regular. CARE GOALS: To follow up with his primary care physician within 1 week of discharge. The patient is advised to take his medications as prescribed and return to the emergency room if he developed short ness of breath, fever, loss of consciousness, chest pain, or lightheadedness. ACTIVITY: To resume as tolerated. DISCHARGE TIME: 65 minutes including chart review and documentation.
== END 2017-08-24 10:28 | disposition home or self-care (01) ==
LOC: ERS 07:25 → 2SW 12:42
PROVIDERS: ADMIT Internal Medicine; ATTEND Internal Medicine
DX: J96.21 Acute and chronic respiratory failure with hypoxia (principal); J44.1 Chronic obstructive pulmonary disease with (acute) exacerbation; F41.9 Anxiety disorder, unspecified; F17.210 Nicotine dependence, cigarettes, uncomplicated; Z91.14 Patient's other noncompliance with medication regimen; Z99.81 Dependence on supplemental oxygen; Z79.52 Long term (current) use of systemic steroids; Z98.890 Other specified postprocedural states
CPT/HCPCS: 36415; 71045; 80048; 80053; 82805; 85025; 87040; 87070; 87205; 93005; 94640; 94664; 94760; 96361; 96365; 96366; 96367; 96372; 96375; 96376; A4216; G0378; J0456; J0696; J1650; J1956; J2920; J2930; J7050; J7620

== ENCOUNTER 2017-09-05 06:32 | Emergency (ER) | payer OTHER | END 2017-09-05 06:52 | disposition home or self-care (01) | LOC: ERS 06:32 | DX: J44.9 Chronic obstructive pulmonary disease, unspecified (principal); F41.9 Anxiety disorder, unspecified; F17.210 Nicotine dependence, cigarettes, uncomplicated | CPT/HCPCS: 99284 ==

== ENCOUNTER 2017-09-26 09:19 | Emergency (ER) | payer OTHER ==
[2017-09-26] MEDS ORDERED: methylPREDNISolone Sod Succ/PF 125 MG/2 ML VIAL ONE (09:48)
[2017-09-26] MEDS ORDERED: Sterile Water 10 ML ONE (09:48)
[2017-09-26] MEDS ORDERED: Albuterol Sulfate 2.5 mg/0.5 ml Neb ONE (09:50)
[2017-09-26] MEDS ORDERED: Albuterol Sulfate 2.5 mg/3 ml Neb ONE (09:50)
--- NOTE | 2017-09-26 10:43 | RAD ---
CHEST 1 VIEW: Date: 09/26/17 COMPARISON: 08/22/17. HISTORY: Cough. FINDINGS: Normal cardiac silhouette. Pulmonary vessels and hilum are normal. Costophrenic angles are clear. No consolidation or mass. Patchy reticulonodular opacities. No pneumothorax or osseous abnormalities. IMPRESSION: Patchy reticulonodular opacities. Continued surveillance is recommended. POS: [facility]
== END 2017-09-26 10:08 | disposition home or self-care (01) ==
LOC: ERS 09:19
DX: J44.1 Chronic obstructive pulmonary disease with (acute) exacerbation (principal); F41.9 Anxiety disorder, unspecified; F17.210 Nicotine dependence, cigarettes, uncomplicated
CPT/HCPCS: 71045; 94644; 94760; 96374; A4216; J2930; J7611

== ENCOUNTER 2017-10-06 07:39 | Inpatient (IN) | payer OTHER ==
--- NOTE | 2017-10-06 08:21 | RAD ---
PORTABLE CHEST: History: Dyspnea. Comparison: 09-26-17 FINDINGS: Lung hodgson are clear. No infiltrate. Heart and mediastinum unremarkable. No evidence of vascular con gestion or edema. IMPRESSION: No acute process identified. POS: [facility]
[2017-10-06 08:25] LABS: #Basophils 0.1 thou/uL (0.0-0.2); #Eosinphils 0.2 thou/uL (0.0-0.7); #Lymphocytes 4.4 thou/uL (1.20-3.40); #Monocytes 1.4 thou/uL (0.11-0.59); %Basophils 0.8 % (0.0-1.0); %Eosinophils 1.6 % (0.0-10.0); %Lymphocytes 33.6 % (21.0-51.0); %Monocytes 10.7 % (0.0-10.0); %Neutrophils 53.2 % (42.0-75.0); Hemoglobin 15.2 g/dL (14.0-18.0); Mean Corpuscular HGB CONC 33.2 g/dL (32.0-36.0); Mean Corpuscular Hemoglobin 32.6 pg (27.0-31.0); Mean Corpuscular Volume 98.4 fl (80.0-94.0); Mean Platelet Volume 6.2 fL (7.4-10.4); Platelet Count 377 thou/uL (130-400); RBC Distribution Width 12.4 % (11.5-14.5); Red Blood Cell (RBC) Count 4.65 mill/uL (4.70-6.10); White Blood Cell (WBC) Count 13.1 thou/uL (4.8-10.8)
[2017-10-06 08:44] LABS: ALT (SGPT) 31 U/L (8-55); AST (SGOT) 20 U/L (5-34); Alkaline Phosphatase 74 U/L (40-150); Anion Gap 9 mmol/L (10-20); BUN (Urea Nitrogen) 11 mg/dL (8.4-25.7); Bilirubin, Total 0.4 mg/dL (0.2-1.2); CK (CPK) 94 U/L (30-200); Calc. Creatinine Clearance 0 mL/min (70-130); Calcium 9.2 mg/dL (7.8-10.44); Carbon Dioxide 27 mmol/L (22-29); Chloride 108 mmol/L (98-107); Estimated GFR-MDRD 77; Globulin 2.5 g/dL (2.4-3.5); Glucose 105 mg/dL (70-105); Potassium 3.8 mmol/L (3.5-5.1); Protein, Total 6.5 g/dL (6.0-8.3); Sodium 140 mmol/L (136-145)
[2017-10-06 08:45] LABS: CKMB 2.2 ng/mL (0-6.6); Troponin I Less than 0.010 ng/mL (< 0.028)
--- NOTE | 2017-10-06 10:23 | HP ---
PRIMARY CARE PHYSICIAN: [facility] call admission. REASON FOR ADMISSION: Respiratory distress due to COPD exacerbation. HISTORY OF PRESENT ILLNESS: A 52-year-old male who has severe COPD who has multiple admissions in [facility] for COPD exacerbation with most recent admission in 08/2017. Patient reports that because of weather change and allergy, he was having upper respiratory symptoms including runny nose, dry co ugh and sore throat and symptoms progressed for last few days with increasing shortness of breath, wh eezing. He was not able to take deep breath. He was trying his home medication, but that was not he lping. The patient also reported that he was not smoking, but he was not improving, he was having a coughing spell and shortness of breath and headache. Because of excessive amount of cough, he was al so hurting in his chest wall. He was feeling dizzy with a coughing spell. He was feeling diaphoreti c as well. He denies any pleuritic chest pain. He denies any hemoptysis. He denies any lower extre mity edema or calf tenderness. He denies any fever or chills, but he was getting very brown scant am ount of sputum with excessive coughing. Last night, patient's condition had gotten worse and that is why he had to call paramedics. Patient was given initially CPAP treatment, DuoNeb therapy and Solu-Medrol as well as magnesium sulfate. [facility] and [facility] treatment, patient was not improving and that is why we d ecided to keep this patient in hospital for admission. ALLERGIES: No known drug allergy. CURRENT HOME MEDICATIONS: The patient does not have any medication with him at this point, but he is on albuterol nebulization q.4 hourly p.r.n., DuoNeb q.6 hourly, and Robitussin p.r.n. basis. REVIEW OF SYSTEMS: The following complete review of systems was negative, unless otherwise mentioned in the HPI or below: Constitutional: Weight loss or gain, ability to conduct usual activities. Skin: Rash, itching. Eyes: Double vision, pain. ENT/Mouth: Nose bleeding, neck stiffness, pain, tenderness. Cardiovascular: Palpitations, dyspnea on exertion, orthopnea. Respiratory: Shortness of breath, wheezing, cough, hemoptysis, fever or night sweats. Gastrointestinal: Poor appetite, abdominal pain, heartburn, nausea, vomiting, constipation, or diarr hea. Genitourinary: Urgency, frequency, dysuria, nocturia. Musculoskeletal: Pain, swelling. Neurologic/Psychiatric: Anxiety, depression. Allergy/Immunologic: Skin rash, bleeding tendency. Please see my HPI for pertinent positive and negative. All other review of systems reviewed and nega tive except as mentioned in the HPI. PAST MEDICAL HISTORY: Severe chronic obstructive pulmonary disease, ongoing intermittent tobacco abu se, noncompliance with treatment. PAST PSYCHIATRIC HISTORY: Anxiety disorder. PAST SURGICAL HISTORY: Right second finger surgery. SOCIAL HISTORY: Patient has history of smoking about half pack per day, but he smokes variable numbe r of cigarettes. The patient also has a remote history of cocaine abuse in the past, but he currentl y denies. Patient drinks alcohol socially and occasionally. FAMILY HISTORY: Brother has history of coronary artery disease, COPD, and cancer runs among several family members. EMERGENCY ROOM COURSE TREATMENT: Ambulance gave him DuoNeb therapy, CPAP, Solu-Medrol 125 mg and mag nesium sulfate. In the emergency room, patient was given aspirin and Levaquin therapy. PHYSICAL EXAMINATION: VITAL SIGNS: Currently, blood pressure 156/100, pulse 76, respiratory rate 34, temperature 97.7, sat uration 99% on 2-3 liters oxygen, weight 90.7 kilograms. GENERAL: Patient is currently alert, awake, mild respiratory distress. HEAD: Normocephalic, atraumatic. EYES: Pupils round, reactive to light. Extraocular muscle intact. ENT: Oropharynx within normal limits. Moist mucous membranes, no oral lesion, no pharyngeal erythem a, no exudate. NECK: Supple, no JVD, no thyromegaly, no carotid bruit, no meningeal signs of irritation. LUNGS: Bilateral end expiratory wheezing. Air entry reduced, pursed lip breathing, able to talk in short sentences. No accessory muscles of respiration in use. CARDIAC: S1 and S2 regular, tachycardia, no murmur, no gallop, no rub. ABDOMEN: Soft, bowel sounds present, nontender, nondistended. No organomegaly, no mass, no suprapub ic tenderness. BACK: Examination unremarkable, no CVA tenderness. EXTREMITIES: Upper extremity passive movements of all joints are normal. Lower extremities: No maggie ma. Good peripheral pulsation. SKIN: No skin rash. HEMATOLOGICAL SYSTEM: No lymphadenopathy. PSYCHIATRIC: Anxious affect. IMAGING DATA AND SIGNIFICANT LABORATORY DATA: 1. EKG showing normal sinus rhythm within normal limits. 2. Chest x-ray based on my review, no acute cardiopulmonary process. 3. CBC: WBC 13.1, hemoglobin 15.2, platelet 377,000, MCV 98.4. 4. BMP: Sodium 140, potassium 3.8, chloride 108, carbon dioxide 27, anion gap 9, BUN 11, creatinine 1.01, glucose 105, calcium 9.2. 5. LFT: AST 20, ALT 31, alkaline phosphatase 74, albumin 4.0, CK 794, CK-MB 2.2, troponin I less th an 0.010, BNP 37.4. ASSESSMENT AND PLAN/IMPRESSION: 1. Respiratory distress, acute due to chronic obstructive pulmonary disease exacerbation. 2. Chronic obstructive pulmonary disease exacerbation, acute on chronic. Patient has underlying sev ere chronic obstructive pulmonary disease as well as ongoing intermittent tobacco abuse disorder. Th is episode is precipitated by allergy symptoms as well as recent upper respiratory infection. This p atient had failed emergency room and outpatient ambulance treatment and he is still in respiratory di stress. We will require admission to the hospital. We will monitor his oxygen saturation. We will continue oxygen to keep saturation above 92%. During hospital course, we will treat him with Solu-Me drol 40 mg IV q.6 hourly, DuoNeb therapy every 4 hourly an as needed basis, Pulmicort nebulization tw ice daily, Mucinex 600 mg 3 times daily, empiric antibiotic therapy with Levaquin 500 mg IV daily and symptomatic treatment. Upon discharge, patient will need tapering doses of prednisone. 3. Tobacco abuse disorder. Smoking cessation counseling given. While in hospital if needed, we keny l use nicotine patch. 4. Alcohol abuse. The patient is given counseling to avoid alcohol abuse. We will continue with mu ltivitamin therapy while in hospital. 5. Anxiety disorder. We will continue Xanax 0.25 mg p.o. q.i.d. p.r.n. while in hospital. 6. Deep venous thrombosis prophylaxis, Lovenox 40 mg subcu daily. 7. Gastrointestinal prophylaxis, Pepcid 20 mg p.o. b.i.d. 8. Code status: The patient is FULL CODE. Patient does not have any surrogate decision maker. Disposition plan based on clinical course. Based on severity of illness, we are expecting patient's stay in hospital more than 2 midnights. Plan of care discussed with the patient in detail.
[2017-10-06] MEDS ORDERED: Lorazepam 2 MG/ML VIAL ONE (10:44)
[2017-10-06] MEDS ORDERED: hydrALAZINE 20 MG/ML VIAL SLOW IVP PRN (10:51)
[2017-10-06] MEDS ORDERED: cloNIDine 0.1 MG TAB PO PRN (10:51)
[2017-10-06] MEDS ORDERED: Chloraseptic Spray 180 ml Bottle PO PRN (10:51)
[2017-10-06] MEDS ORDERED: Acetaminophen 325 MG TAB PO PRN (10:51)
[2017-10-06] MEDS ORDERED: Artificial Tears 18 DROP/0.9 ML EA EYE PRN (10:51)
[2017-10-06] MEDS ORDERED: Senokot 8.6 MG TAB PO PRN (10:51)
[2017-10-06] MEDS ORDERED: Ondansetron ODT 4 MG TAB PO PRN (10:51)
[2017-10-06] MEDS ORDERED: ALPRAZolam 0.25 MG TAB PO PRN (10:51)
[2017-10-06] MEDS ORDERED: Loperamide HCl 2 MG CAP PO PRN (10:51)
[2017-10-06] MEDS ORDERED: Mag-Al 1200 mg/1200 mg/30 ML UDCUP PO PRN (10:51)
[2017-10-06] MEDS ORDERED: Milk Of Magnesia 30 ML UDCUP PO PRN (10:51)
[2017-10-06] MEDS ORDERED: Eucerin (Mineral Oil/Petrolatum,White) 30 gm Jar TOP PRN (10:51)
[2017-10-06] MEDS ORDERED: Zolpidem Tartrate 5 MG TAB PO PRN (10:51)
[2017-10-06] MEDS ORDERED: Diabetic Tussin 200 MG/10 ML UDCUP PO PRN (10:51)
[2017-10-06] MEDS ORDERED: Loratadine 10 MG TAB PO PRN (10:51)
[2017-10-06] MEDS ORDERED: HYDROcodone/Acetaminophen 5/325 mg Tablet PO PRN (10:51)
[2017-10-06] MEDS ORDERED: Ondansetron HCl/PF 4 MG/2 ML Vial IVP PRN (10:51)
[2017-10-06] MEDS ORDERED: Sodium Chloride 0.65% Nasal 44 ML BOT EA NARE PRN (10:51)
--- NOTE | 2017-10-06 13:26 | DIS ---
HOSPITAL COURSE: The patient was admitted by me earlier today. He was admitted for COPD exacerbatio n. Please see my HPI for further detail. He was in the emergency room and under ER hold condition. As he was not able to get medical bed and he was in the emergency room in his gurney that was making him uncomfortable and that is why patient decided to leave against medical advice, though he was not ready for discharge from the emergency room, but patient able to make his own decision and he left [facility].
[2017-10-06] MEDS ORDERED: guaiFENesin ER 600 MG TAB PO SCH (15:00)
[2017-10-06] MEDS ORDERED: Budesonide 0.5 MG/2 ML NEB INH SCH (18:30)
[2017-10-06] MEDS ORDERED: Famotidine 20 MG TAB PO SCH (21:00)
[2017-10-07] MEDS ORDERED: Enoxaparin Sodium 40 MG/0.4 ML SYRINGE SC SCH (09:00)
[2017-10-07] MEDS ORDERED: Multivitamin W/ Minerals 1 TAB PO SCH (09:00)
--- NOTE | 2017-10-10 21:35 | EKG ---
Test Reason : SOB Blood Pressure : / mmHG Vent. Rate : 072 BPM Atrial Rate : 072 BPM P-R Int : 164 ms QRS Dur : 084 ms QT Int : 362 ms P-R-T Axes : 065 012 049 degrees QTc Int : 396 ms Normal sinus rhythm Normal ECG Confirmed by FAIZA OSUZA M.D. ([id number]), department editor PEYMAN RASHID ([id number]) on 10/10/2017 9:34:41 PM Referred By: LIBBY Confirmed By:FAIZA SOUZA M.D.
== END 2017-10-06 12:20 | disposition left against medical advice (07) | DRG 192 ==
LOC: ERS 07:39 → ERHOLD 10:08
PROVIDERS: ADMIT Internal Medicine; ATTEND Internal Medicine
DX: J44.1 Chronic obstructive pulmonary disease with (acute) exacerbation (principal); F10.10 Alcohol abuse, uncomplicated; F17.210 Nicotine dependence, cigarettes, uncomplicated; Z91.19 Patient's noncompliance with other medical treatment and regimen; F41.9 Anxiety disorder, unspecified; F12.11 Cannabis abuse, in remission; F14.11 Cocaine abuse, in remission; R06.03 Acute respiratory distress
CPT/HCPCS: 36415; 71045; 80053; 82553; 83880; 84484; 85025; 93005; 94660; 94760; 96365; 96375; 99406; J1956; J2060

== ENCOUNTER 2017-10-08 07:02 | Emergency (ER) | payer OTHER ==
[2017-10-08] MEDS ORDERED: Albuterol Sulfate 2.5 mg/0.5 ml Neb ONE (07:09)
[2017-10-08] MEDS ORDERED: Albuterol Sulfate 2.5 mg/3 ml Neb ONE (07:10)
[2017-10-08 08:21] LABS: #Basophils 0.1 thou/uL (0.0-0.2); #Eosinphils 0.2 thou/uL (0.0-0.7); #Lymphocytes 4.3 thou/uL (1.20-3.40); #Monocytes 1.1 thou/uL (0.11-0.59); #Neutrophils 5.1 thou/uL (1.40-6.50); %Eosinophils 1.5 % (0.0-10.0); %Lymphocytes 39.5 % (21.0-51.0); %Monocytes 10.6 % (0.0-10.0); %Neutrophils 47.5 % (42.0-75.0); Hemoglobin 15.6 g/dL (14.0-18.0); Mean Corpuscular HGB CONC 33.2 g/dL (32.0-36.0); Mean Corpuscular Volume 99.3 fl (80.0-94.0); Mean Platelet Volume 6.3 fL (7.4-10.4); Platelet Count 374 thou/uL (130-400); RBC Distribution Width 12.7 % (11.5-14.5); Red Blood Cell (RBC) Count 4.72 mill/uL (4.70-6.10); White Blood Cell (WBC) Count 10.8 thou/uL (4.8-10.8)
[2017-10-08 08:39] LABS: Anion Gap 11 mmol/L (10-20); BUN (Urea Nitrogen) 16 mg/dL (8.4-25.7); Calc. Creatinine Clearance 0 mL/min (70-130); Calcium 8.7 mg/dL (7.8-10.44); Carbon Dioxide 27 mmol/L (22-29); Chloride 105 mmol/L (98-107); Estimated GFR-MDRD 87; Glucose 97 mg/dL (70-105); Potassium 3.7 mmol/L (3.5-5.1); Sodium 139 mmol/L (136-145)
[2017-10-08 08:45] LABS: CKMB 1.7 ng/mL (0-6.6); Troponin I Less than 0.010 ng/mL (< 0.028)
--- NOTE | 2017-10-08 09:10 | RAD ---
PORTABLE CHEST 1 VIEW: Date: 10/08/17 Time: 0717 hours HISTORY: Dyspnea. FINDINGS: Comparison made with exam of 10/05/17. The heart size is normal. The lungs are expanded without focal areas of consolidation, pneumothorax, or pleural effusions. IMPRESSION: No radiographic evidence of acute cardiopulmonary process. POS: [facility]
== END 2017-10-08 10:34 | disposition home or self-care (01) ==
LOC: ERS 07:02
DX: J44.1 Chronic obstructive pulmonary disease with (acute) exacerbation (principal); Z91.14 Patient's other noncompliance with medication regimen; H54.40 Blindness, one eye, unspecified eye; F41.9 Anxiety disorder, unspecified; F17.210 Nicotine dependence, cigarettes, uncomplicated
CPT/HCPCS: 36415; 71045; 80048; 82553; 83880; 84484; 85025; 93005; 94644; 94660; J7611

== ENCOUNTER 2017-10-17 06:58 | Emergency (ER) | payer OTHER ==
--- NOTE | 2017-10-17 08:35 | RAD ---
AP VIEW CHEST: HISTORY: Chest pain. FINDINGS: AP view chest is obtained on 10/17/17. Comparison is made to previous exam from 10/08/17. AP view chest demonstrates the lungs to be well aerated. No evidence of active intrathoracic disease is seen. No evidence of effusions, pneumonia, or pneumothorax is seen. IMPRESSION: Unremarkable AP view chest. POS: [facility]
== END 2017-10-17 07:40 | disposition home or self-care (01) ==
LOC: ERS 06:58
DX: J30.2 Other seasonal allergic rhinitis (principal); F41.9 Anxiety disorder, unspecified; J43.9 Emphysema, unspecified; H54.40 Blindness, one eye, unspecified eye; F17.210 Nicotine dependence, cigarettes, uncomplicated; Z79.52 Long term (current) use of systemic steroids
CPT/HCPCS: 71045; 93005

== ENCOUNTER 2017-10-18 13:47 | Emergency (ER) | payer OTHER ==
[2017-10-18] MEDS ORDERED: Albuterol Sulfate 2.5 mg/3 ml Neb ONE (14:13)
[2017-10-18] MEDS ORDERED: Albuterol Sulfate 2.5 mg/0.5 ml Neb ONE (14:13)
[2017-10-18 14:35] LABS: Hemoglobin 14.8 g/dL (14.0-18.0); Mean Corpuscular HGB CONC 33.8 g/dL (32.0-36.0); Mean Corpuscular Hemoglobin 32.4 pg (27.0-31.0); Mean Platelet Volume 6.2 fL (7.4-10.4); Platelet Count 319 thou/uL (130-400); RBC Distribution Width 12.5 % (11.5-14.5); Red Blood Cell (RBC) Count 4.57 mill/uL (4.70-6.10); White Blood Cell (WBC) Count 10.1 thou/uL (4.8-10.8)
[2017-10-18 14:44] LABS: ALT (SGPT) 29 U/L (8-55); AST (SGOT) 21 U/L (5-34); Albumin 3.9 g/dL (3.5-5.0); Alkaline Phosphatase 71 U/L (40-150); Anion Gap 10 mmol/L (10-20); BUN (Urea Nitrogen) 15 mg/dL (8.4-25.7); Bilirubin, Total 0.4 mg/dL (0.2-1.2); Calc. Creatinine Clearance 0 mL/min (70-130); Calcium 9.1 mg/dL (7.8-10.44); Carbon Dioxide 26 mmol/L (22-29); Chloride 107 mmol/L (98-107); Estimated GFR-MDRD 78; Globulin 2.5 g/dL (2.4-3.5); Glucose 114 mg/dL (70-105); Potassium 4.2 mmol/L (3.5-5.1); Protein, Total 6.4 g/dL (6.0-8.3); Sodium 139 mmol/L (136-145)
[2017-10-18 14:47] LABS: CKMB 3.1 ng/mL (0-6.6); Troponin I Less than 0.010 ng/mL (< 0.028)
[2017-10-18 15:00] LABS: Band 2 % (5-11); Lymphocytes 23 % (21-51); MDiff Complete? YES; Monocytes 6 % (0-10); Neutrophil 68 % (42-75); PLT Morphology Comment Appears Adequate; Reactive Lymphocytes 1 % (0-10)
--- NOTE | 2017-10-18 15:48 | RAD ---
AP CHEST: History: Dyspnea. Shortness of breath. Date: 10-18-17 Comparison: 10-17-17 FINDINGS: The lungs are well aerated. No evidence of active intrathoracic disease seen. No evidence of effusion s, pneumonia, or pneumothorax is seen. IMPRESSION: Unremarkable AP chest. Not significantly changed since the previous radiograph from one day earlier. POS: [facility]
--- NOTE | 2017-11-28 23:25 | EKG ---
Test Reason : Blood Pressure : / mmHG Vent. Rate : 072 BPM Atrial Rate : 072 BPM P-R Int : 158 ms QRS Dur : 092 ms QT Int : 356 ms P-R-T Axes : 059 -13 050 degrees QTc Int : 389 ms Normal sinus rhythm Normal ECG Confirmed by RONNY KUMAR, KADIE Galindo ([id number]), newspaper copy editor PEYMAN RASHID ([id number]) on 11/28/2017 11:24:40 PM Referred By: Confirmed By:KADIE JEFFERSON MD
== END 2017-10-18 15:13 | disposition home or self-care (01) ==
LOC: ERS 13:47
DX: J44.1 Chronic obstructive pulmonary disease with (acute) exacerbation (principal); F41.9 Anxiety disorder, unspecified; F17.210 Nicotine dependence, cigarettes, uncomplicated
CPT/HCPCS: 36415; 71045; 80053; 82553; 83880; 84484; 85025; 93005; 94644; J7611

== ENCOUNTER → 2018-01-14 | Emergency (ER) | payer OTHER ==
[~2018-01-14] MED LIST: predniSONE 20 MG TAB ONE
--- NOTE | 2018-01-14 08:42 | RAD ---
PORTABLE CHEST 1 VIEW: DATE: 01/14/18. TIME: 5:37 a.m. HISTORY: Dyspnea. FINDINGS: Comparison is made with the exam of 10/18/17. The heart size is normal. The lungs are expanded without focal areas of consolidation, pneumothorax, or pleural effusions. A small hiatal hernia is present. IMPRESSION: No radiographic evidence of acute cardiopulmonary process. POS: [facility]
== END ==
LOC: ERS 04:52
DX: J44.1 Chronic obstructive pulmonary disease with (acute) exacerbation (principal); F41.9 Anxiety disorder, unspecified; Z87.891 Personal history of nicotine dependence
CPT/HCPCS: 71045; 93005; 94640; 96360; 96361; J7506; J7620

== ENCOUNTER 2018-02-08 08:26 | Emergency (ER) | payer OTHER ==
[2018-02-08 10:36] LABS: #Basophils 0.1 thou/uL (0.0-0.2); #Eosinphils 0.1 thou/uL (0.0-0.7); #Lymphocytes 1.2 thou/uL (1.20-3.40); #Monocytes 0.3 thou/uL (0.11-0.59); #Neutrophils 5.5 thou/uL (1.40-6.50); %Basophils 0.7 % (0.0-1.0); %Eosinophils 1.9 % (0.0-10.0); %Lymphocytes 17.1 % (21.0-51.0); %Monocytes 3.6 % (0.0-10.0); %Neutrophils 76.6 % (42.0-75.0); Hemoglobin 16.4 g/dL (14.0-18.0); Mean Corpuscular HGB CONC 34.5 g/dL (32.0-36.0); Mean Corpuscular Hemoglobin 32.5 pg (27.0-31.0); Mean Corpuscular Volume 94.4 fL (78.0-98.0); Mean Platelet Volume 5.9 fL (7.4-10.4); Platelet Count 350 thou/uL (130-400); RBC Distribution Width 11.9 % (11.5-14.5); Red Blood Cell (RBC) Count 5.05 mill/uL (4.70-6.10); White Blood Cell (WBC) Count 7.2 thou/uL (4.8-10.8)
[2018-02-08 10:57] LABS: ALT (SGPT) 36 U/L (8-55); AST (SGOT) 29 U/L (5-34); Albumin 4.1 g/dL (3.5-5.0); Alkaline Phosphatase 76 U/L (40-150); Anion Gap 13 mmol/L (10-20); BUN (Urea Nitrogen) 10 mg/dL (8.4-25.7); Bilirubin, Total 1.1 mg/dL (0.2-1.2); Calc. Creatinine Clearance 0 mL/min (70-130); Calcium 9.4 mg/dL (7.8-10.44); Carbon Dioxide 25 mmol/L (22-29); Chloride 106 mmol/L (98-107); Estimated GFR-MDRD 80; Globulin 2.8 g/dL (2.4-3.5); Glucose 106 mg/dL (70-105); Potassium 4.5 mmol/L (3.5-5.1); Protein, Total 6.9 g/dL (6.0-8.3); Sodium 139 mmol/L (136-145)
--- NOTE | 2018-02-08 10:59 | RAD ---
PORTABLE AP CHEST RADIOGRAPH: Date: 02-08-18 History: Dyspnea, respiratory distress. Comparison: 01-14-18 FINDINGS: Cardiac silhouette and pulmonary vasculature are within normal limits. Lungs are expanded and clear. There has been no interval change from prior exam. IMPRESSION: No acute cardiopulmonary process. Chest is stable from prior exam. POS: [facility]
[2018-02-08 11:02] LABS: CKMB 1.9 ng/mL (0-6.6); Troponin I Less than 0.010 ng/mL (< 0.028)
--- NOTE | 2018-02-20 10:57 | EKG ---
Test Reason : Blood Pressure : / mmHG Vent. Rate : 074 BPM Atrial Rate : 074 BPM P-R Int : 156 ms QRS Dur : 088 ms QT Int : 380 ms P-R-T Axes : 084 -30 033 degrees QTc Int : 421 ms Normal sinus rhythm with sinus arrhythmia Left axis deviation Abnormal ECG Confirmed by ORQUIDEA MARIE DO ([id number]), city editor SELENA WINKLER ([id number]) on 02/20/2018 10:56:56 AM Referred By: Confirmed By:ORQUIDEA MARIE DO
== END 2018-02-08 11:51 | disposition home or self-care (01) ==
LOC: ERS 08:26
DX: J44.1 Chronic obstructive pulmonary disease with (acute) exacerbation (principal); F41.9 Anxiety disorder, unspecified; I49.9 Cardiac arrhythmia, unspecified; Z87.891 Personal history of nicotine dependence
CPT/HCPCS: 36415; 71045; 80053; 82553; 84484; 85025; 93005; 94660

== ENCOUNTER 2018-02-27 07:00 | Emergency (ER) | payer OTHER ==
[2018-02-27] MEDS ORDERED: hydrOXYzine Pamoate 25 mg Capsule ONE (07:32)
[2018-02-27] MEDS ORDERED: Azithromycin 250 MG TAB ONE (07:36)
--- NOTE | 2018-02-27 07:45 | RAD ---
PORTABLE CHEST: HISTORY: Shortness of breath. FINDINGS: Lung hodgson are clear. No infiltrate. Vascular markings normal. Heart and mediastinum unremarkable . IMPRESSION: No acute abnormality. POS: [facility]
[2018-02-27] MEDS ORDERED: Albuterol Sulfate 2.5 mg/0.5 ml Neb ONE ×2 (07:50→07:51)
[2018-02-27 08:06] LABS: #Basophils 0.1 thou/uL (0.0-0.2); #Eosinphils 0.3 thou/uL (0.0-0.7); #Lymphocytes 3.4 thou/uL (1.20-3.40); #Monocytes 1.1 thou/uL (0.11-0.59); #Neutrophils 4.9 thou/uL (1.40-6.50); %Basophils 0.9 % (0.0-1.0); %Eosinophils 3.5 % (0.0-10.0); %Lymphocytes 34.3 % (21.0-51.0); %Monocytes 11.4 % (0.0-10.0); %Neutrophils 49.9 % (42.0-75.0); Hemoglobin 15.6 g/dL (14.0-18.0); Mean Corpuscular HGB CONC 34.8 g/dL (32.0-36.0); Mean Corpuscular Hemoglobin 32.9 pg (27.0-31.0); Mean Corpuscular Volume 94.5 fL (78.0-98.0); Mean Platelet Volume 6.1 fL (7.4-10.4); Platelet Count 347 thou/uL (130-400); RBC Distribution Width 12.3 % (11.5-14.5); Red Blood Cell (RBC) Count 4.74 mill/uL (4.70-6.10); White Blood Cell (WBC) Count 9.8 thou/uL (4.8-10.8)
[2018-02-27 08:22] LABS: ALT (SGPT) 32 U/L (8-55); AST (SGOT) 22 U/L (5-34); Alkaline Phosphatase 81 U/L (40-150); Anion Gap 12 mmol/L (10-20); BUN (Urea Nitrogen) 14 mg/dL (8.4-25.7); Bilirubin, Total 0.8 mg/dL (0.2-1.2); Calc. Creatinine Clearance 0 mL/min (70-130); Calcium 9.3 mg/dL (7.8-10.44); Carbon Dioxide 27 mmol/L (22-29); Chloride 105 mmol/L (98-107); Estimated GFR-MDRD 90; Globulin 2.7 g/dL (2.4-3.5); Glucose 103 mg/dL (70-105); Protein, Total 6.7 g/dL (6.0-8.3); Sodium 140 mmol/L (136-145)
[2018-02-27 08:27] LABS: CKMB 2.3 ng/mL (0-6.6); Troponin I Less than 0.010 ng/mL (< 0.028)
== END 2018-02-27 09:19 | disposition home or self-care (01) ==
LOC: ERS 07:00
DX: J44.1 Chronic obstructive pulmonary disease with (acute) exacerbation (principal); F41.9 Anxiety disorder, unspecified; Z87.891 Personal history of nicotine dependence; Z79.899 Other long term (current) drug therapy
CPT/HCPCS: 36415; 71045; 80053; 82553; 83880; 84484; 85025; 93005; J7611; J7620; Q0177

== ENCOUNTER 2018-03-24 07:52 | Emergency (ER) | payer OTHER ==
[2018-03-24 08:13] LABS: Actual Bicarbonate (HCO3a) 19.9 mEq/L (22-28); Base Excess (BEa) -4.1 mEq/L (-2.0 to +3.0); Carboxyhemoglobin (COHb) 1.1 gm% (0.0-3.0); Hemoglobin (Hb) 16.8 g/dL (14.0-18.0); O2 Tension (PaO2) 107.4 mmHg (80.0-100.0); pH, Arterial 7.39 (7.35-7.45)
[2018-03-24 08:14] LABS: Analyzer IN Cardio ER; Puncture Site RRA
[2018-03-24 08:14] LABS: #Basophils 0.1 thou/uL (0.0-0.2); #Eosinphils 0.3 thou/uL (0.0-0.7); #Lymphocytes 3.8 thou/uL (1.20-3.40); #Monocytes 1.4 thou/uL (0.11-0.59); #Neutrophils 5.2 thou/uL (1.40-6.50); %Basophils 1.3 % (0.0-1.0); %Eosinophils 3.2 % (0.0-10.0); %Monocytes 12.5 % (0.0-10.0); Hemoglobin 15.9 g/dL (14.0-18.0); Mean Corpuscular HGB CONC 32.5 g/dL (32.0-36.0); Mean Corpuscular Hemoglobin 30.7 pg (27.0-31.0); Mean Corpuscular Volume 94.5 fL (78.0-98.0); Mean Platelet Volume 6.3 fL (7.4-10.4); Platelet Count 382 thou/uL (130-400); RBC Distribution Width 12.4 % (11.5-14.5); Red Blood Cell (RBC) Count 5.19 mill/uL (4.70-6.10); White Blood Cell (WBC) Count 10.9 thou/uL (4.8-10.8)
[2018-03-24 08:35] LABS: ALT (SGPT) 33 U/L (8-55); AST (SGOT) 26 U/L (5-34); Albumin 4.2 g/dL (3.5-5.0); Alkaline Phosphatase 83 U/L (40-150); Anion Gap 11 mmol/L (10-20); BUN (Urea Nitrogen) 14 mg/dL (8.4-25.7); Bilirubin, Total 1.2 mg/dL (0.2-1.2); CK (CPK) 105 U/L (30-200); Calc. Creatinine Clearance 0 mL/min (70-130); Calcium 8.7 mg/dL (7.8-10.44); Carbon Dioxide 24 mmol/L (22-29); Chloride 107 mmol/L (98-107); Estimated GFR-MDRD Greater than 90; Globulin 2.8 g/dL (2.4-3.5); Glucose 102 mg/dL (70-105); Lipase 49 U/L (8-78); Potassium 4.1 mmol/L (3.5-5.1); Sodium 138 mmol/L (136-145)
[2018-03-24 08:39] LABS: CKMB 1.9 ng/mL (0-6.6); Troponin I Less than 0.010 ng/mL (< 0.028)
--- NOTE | 2018-03-24 09:31 | RAD ---
AP VIEW CHEST: INDICATIONS: History of dyspnea. COMPARISON: 02/27/2018 FINDINGS: The lungs are clear. The cardiomediastinal silhouette is within normal limits. No acute osseous abn ormality is evident. IMPRESSION: No acute abnormality. POS: [facility]
--- NOTE | 2018-03-24 13:53 | HP-2 ---
DATE OF SERVICE: 03/24/2018 PRIMARY CARE PHYSICIAN: Mitchell Priest D.O. RESIDENT: Carroll Smith M.D. ATTENDING PHYSICIAN: Gabe Durbin M.D. CODE STATUS: DNR. A lengthy discussion was had with the patient who desired no resuscitative measures performed in the event of cardiac or acute respiratory distress. CHIEF COMPLAINT: Dyspnea on exertion. "I cannot breathe." HISTORY OF PRESENT ILLNESS: Mr. Fung is a pleasant, but unfortunate 53- year-old male with past medical history of COPD and polysubstance abuse with an extensive smoking history. He presents with a 4-day history of progressively worsening dyspnea on exertion and shortness of breath, headache and anxiety. He states that one of his children has been causing a lot of trouble for him and he has been trying to provide social and financial support. He states that when his anxiety worsens, he becomes angry and is unable to calm himself down which leads to worsening of his baseline respiratory status. He specifically denies fevers, chills or chest pain. He endorses nausea, vomiting, and diarrhea for the past 4 months. He states he has been out of his medications because he has been unable to go to the physician's office due to transportation issues. ER COURSE: While in the ER, the patient was seen and evaluated by Dr. Orly Leyva and while en route with EMS he received Solu-Medrol 125 mg, magnesium 2 grams, and DuoNebs. BiPAP was initiated by EMS and he was titrated off BiPAP while in the ER. In the ER, he had routine labs drawn along with an EKG and chest x-ray. PAST MEDICAL HISTORY: 1. COPD. 2. Polysubstance abuse. PAST SURGICAL HISTORY: Right second finger surgery. ALLERGIES: No known drug allergies. MEDICATIONS: Per clinic record. 1. Lorazepam 0.5 mg daily as needed. 2. Spiriva HandiHaler 18 mcg inhaled once daily. 3. Protonix 40 mg daily. 4. Nasacort 2 sprays to each nostril daily. 5. Albuterol nebulizer 2.5 mg q.4 hours p.r.n. 6. DuoNebs q.i.d. p.r.n. 7. Lexapro 10 mg daily. 8. Dulera 200/5 mcg 2 puffs b.i.d. FAMILY HISTORY: Positive for coronary artery disease, COPD and cancer. SOCIAL HISTORY: The patient endorses a 60+ pack year smoking history, but states he quit approximately 1 month ago. He has a history of polysubstance abuse and alcohol abuse. REVIEW OF SYSTEMS: GENERAL: Denies fevers, chills. EYES: Reports chronic vision loss in the right eye. Denies blurred vision or double vision. ENT: Denies sore throat, nasal discharge or congestion. CARDIOVASCULAR: Denies chest pain or palpitations. LUNGS: Reports worsening shortness of breath at rest and dyspnea on exertion. Denies cough. GI: Endorses nausea, vomiting, and diarrhea x4 months. GENITOURINARY: Denies discharge or dysuria. MUSCULOSKELETAL: Reports chronic back pain. PSYCHIATRIC: Endorses anxiety. Denies depression. Denies suicidal or homicidal ideation. NEUROLOGIC: Reports chronic numbness in his lower legs. Denies weakness. PHYSICAL EXAMINATION: VITAL SIGNS: Blood pressure 147/99, pulse 63, respiratory rate 21, O2 sat 98% on 2 liters nasal cannula. T-max 98.7. GENERAL: Mild respiratory distress. A&O x4, appropriately interactive. HEENT: Normocephalic, atraumatic. Left eye PERRLA with EOMI. Right eye has what appears to be a cataract, which the patient states is from previous eye trauma. He also has EOMI in the right eye. External ears and nose normal. Oropharynx reveals moist mucous membranes, poor dentition. The patient has pursed lip breathing. NECK: Supple, without lymphadenopathy, thyromegaly. CARDIOVASCULAR: Normal rate, regular rhythm without murmurs, rubs or gallops. Radial pulses and pedal pulses 2+ bilaterally. PULMONARY: Clear to auscultation bilaterally with decreased air movement throughout. No wheezing, rhonchi or rales noted, mild increased labored breathing. ABDOMEN: Soft, nontender. Bowel sounds x4 quadrants. MUSCULOSKELETAL: Moves all 4 limbs equally. No pain or tenderness. NEUROLOGIC: No gross focal deficits. Cranial nerves grossly intact. SKIN: Warm, dry, and intact without lesions. EXTREMITIES: No clubbing, cyanosis or edema. PSYCHIATRIC: Mood and affect are appropriate. LABORATORY DATA: 1. CBC: White blood cell count 10.9, hemoglobin 15.9, hematocrit 49.0, MCV 94.5, platelets 382, neutrophils 48.0%. 2. CMP: Sodium 138, potassium 4.1, chloride 107, bicarbonate 24, BUN 14, creatinine 0.86, glucose 102, calcium 8.9, bilirubin 1.2, AST 26, ALT 33, alkaline phosphatase 83. Total protein 10.0, albumin 4.2, globulin 2.8, Lipase 47. 3. Cardiac markers; CPK 105, CK-MB 1.9, troponin less than 0.010. BUN 23.5. 4. Arterial blood gas; pH 7.3, pCO2 34, pO2 107. Chest x-ray, no acute processes. EKG: Rate 63, normal sinus rhythm, no ST changes, normal T-wave progression. QTC interval 380. ASSESSMENT AND PLAN: Mr. Fung a 53-year-old male with past medical history of chronic obstructive pulmonary disease who presents with acute worsening of his shortness of breath and dyspnea on exertion requiring BiPAP by EMS. Initial laboratory evaluation was unremarkable and he is back to his baseline oxygen requirement. 1. Acute hypoxic respiratory failure secondary to chronic obstructive pulmonary disease exacerbation. The patient is currently off BiPAP and has received 1 round of steroids. We will start azithromycin 500 mg daily and continue 250 mg daily for 4 days. Scheduled DuoNebs q.4h. with q.2h. p.r.n. albuterol. We will restart home medications of Spiriva and Dulera. Continue supplemental oxygen with goal oxygen saturation between 88% and 92%. 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 2. History of polysubstance abuse. Denies drug use at this time. 3. Anxiety disorder. We will restart home Lexapro and provide p.r.n. lorazepam. 4. Diet: Regular. 5. Prophylaxis: Lovenox. 6. Code status: DNR. Again, lengthy discussion was had with the patient regarding his code status. 7. Poor social support network. Will have case management discuss Medicaid benefits and help him arrange outpatient follow up. 8. Diarrhea. We will check stool studies, fecal lactoferrin and Clostridium difficile. DISPOSITION AND ESTIMATED LENGTH STAY: He is admitted under inpatient status and admitted to the medical floor. Length of stay, likely greater than 2 midnights number. The history and physical exam and management of patient were discussed with Dr. Durbin who was in agreement. After I saw and examined the patient, he was transferred to the [facility] due to insurance purposes. The ER performed a [id number] discussion and arranged the transfer. [facility]
--- NOTE | 2018-03-27 17:59 | EKG ---
Test Reason : Blood Pressure : / mmHG Vent. Rate : 063 BPM Atrial Rate : 063 BPM P-R Int : 170 ms QRS Dur : 080 ms QT Int : 372 ms P-R-T Axes : 065 -24 038 degrees QTc Int : 380 ms Normal sinus rhythm Normal ECG Confirmed by LEVON BRADLEY MD ([id number]), development editor SELENA WINKLER ([id number]) on 03/27/2018 5:59:29 PM Referred By: Confirmed By:LEVON BRADLEY MD
== END 2018-03-24 14:12 | disposition short-term general hospital (02) ==
LOC: ERS 07:52
DX: J44.1 Chronic obstructive pulmonary disease with (acute) exacerbation (principal); F41.9 Anxiety disorder, unspecified; Z87.891 Personal history of nicotine dependence; Z79.899 Other long term (current) drug therapy
CPT/HCPCS: 36415; 71045; 80053; 82553; 82805; 83690; 83880; 84484; 85025; 93005; 94660

== ENCOUNTER 2018-05-29 07:35 | Emergency (ER) | payer OTHER ==
[2018-05-29] MEDS ORDERED: Ketorolac Tromethamine 30 MG/ML VIAL ONE (07:54)
== END 2018-05-29 08:18 | disposition home or self-care (01) ==
LOC: ERS 07:35
DX: M54.5 Low back pain (principal); J44.1 Chronic obstructive pulmonary disease with (acute) exacerbation; F41.9 Anxiety disorder, unspecified; Z87.891 Personal history of nicotine dependence; Z79.899 Other long term (current) drug therapy
CPT/HCPCS: 96374; J1885

== ENCOUNTER 2018-06-17 07:05 | Emergency (ER) | payer OTHER ==
[2018-06-17 07:36] LABS: #Basophils 0.1 thou/uL (0.0-0.2); #Eosinphils 0.5 thou/uL (0.0-0.7); #Lymphocytes 3.3 thou/uL (1.20-3.40); #Neutrophils 3.9 thou/uL (1.40-6.50); %Basophils 1.1 % (0.0-1.0); %Eosinophils 5.6 % (0.0-10.0); %Lymphocytes 36.9 % (21.0-51.0); %Monocytes 11.8 % (0.0-10.0); %Neutrophils 44.6 % (42.0-75.0); Hemoglobin 15.7 g/dL (14.0-18.0); Mean Corpuscular HGB CONC 34.4 g/dL (32.0-36.0); Mean Corpuscular Hemoglobin 33.1 pg (27.0-31.0); Mean Corpuscular Volume 96.1 fL (78.0-98.0); Mean Platelet Volume 6.3 fL (7.4-10.4); Platelet Count 391 thou/uL (130-400); RBC Distribution Width 12.3 % (11.5-14.5); Red Blood Cell (RBC) Count 4.74 mill/uL (4.70-6.10); White Blood Cell (WBC) Count 8.8 thou/uL (4.8-10.8)
[2018-06-17] MEDS ORDERED: Magnesium 2 GM/50 ML BAG (IN WATER) ONE (07:36)
[2018-06-17 08:10] LABS: ALT (SGPT) 33 U/L (8-55); AST (SGOT) 28 U/L (5-34); Albumin 3.9 g/dL (3.5-5.0); Alkaline Phosphatase 95 U/L (40-150); BUN (Urea Nitrogen) 7 mg/dL (8.4-25.7); Bilirubin, Total 0.5 mg/dL (0.2-1.2); Calc. Creatinine Clearance 0 mL/min (70-130); Calcium 8.9 mg/dL (7.8-10.44); Carbon Dioxide 25 mmol/L (22-29); Chloride 105 mmol/L (98-107); Estimated GFR-MDRD 70; Globulin 2.5 g/dL (2.4-3.5); Glucose 101 mg/dL (70-105); Magnesium 2.3 mg/dL (1.6-2.6); Potassium 4.3 mmol/L (3.5-5.1); Protein, Total 6.4 g/dL (6.0-8.3); Sodium 140 mmol/L (136-145)
[2018-06-17] MEDS ORDERED: Albuterol Sulfate 2.5 mg/3 ml Neb ONE (08:14)
[2018-06-17] MEDS ORDERED: Albuterol Sulfate 2.5 mg/0.5 ml Neb ONE (08:14)
--- NOTE | 2018-06-17 08:45 | RAD ---
CHEST 1 VIEW: Date: 06/17/18 HISTORY: Dyspnea. COMPARISON: 03/24/18. FINDINGS: Cardiac silhouette is magnified by projection. Pulmonary vasculature unremarkable. Mediastinum is mid line. No confluent air space consolidation or evidence of pneumothorax. compliance monitor leads overlie the chest. IMPRESSION: No active cardiopulmonary abnormalities are demonstrated. POS: [facility]
[2018-06-17 09:21] LABS: Anion Gap 14 mmol/L (10-20)
--- NOTE | 2018-06-19 13:57 | EKG ---
Test Reason : Blood Pressure : / mmHG Vent. Rate : 055 BPM Atrial Rate : 055 BPM P-R Int : 176 ms QRS Dur : 090 ms QT Int : 394 ms P-R-T Axes : 018 -21 013 degrees QTc Int : 376 ms Sinus bradycardia Otherwise normal ECG Confirmed by MILAGROS HELTON D.O. ([id number]), editorial clerk SELENA WINKLER ([id number]) on 06/19/2018 1:57:34 PM Referred By: Confirmed By:MILAGROS HELTON D.O.
== END 2018-06-17 09:00 | disposition home or self-care (01) ==
LOC: ERS 07:05
DX: J44.1 Chronic obstructive pulmonary disease with (acute) exacerbation (principal); Z87.891 Personal history of nicotine dependence; F41.9 Anxiety disorder, unspecified; Z79.899 Other long term (current) drug therapy; Z79.51 Long term (current) use of inhaled steroids
CPT/HCPCS: 36415; 71045; 80053; 83735; 83880; 85025; 87804; 93005; 94640; 96365; J7611

== ENCOUNTER 2018-06-24 07:32 | Emergency (ER) | payer OTHER | END 2018-06-24 08:34 | disposition home or self-care (01) | LOC: ERS 07:32 | DX: F41.9 Anxiety disorder, unspecified (principal); J44.9 Chronic obstructive pulmonary disease, unspecified; Z87.891 Personal history of nicotine dependence | CPT/HCPCS: 94640; J7620 ==

== ENCOUNTER 2018-07-23 08:53 | Emergency (ER) | payer OTHER ==
[2018-07-23] MEDS ORDERED: methylPREDNISolone Sod Succ/PF 125 MG/2 ML VIAL ONE (09:12)
[2018-07-23] MEDS ORDERED: Albuterol Sulfate 2.5 mg/0.5 ml Neb ONE ×2 (09:25→09:26)
[2018-07-23 09:28] LABS: #Basophils 0.1 thou/uL (0.0-0.2); #Eosinphils 0.4 thou/uL (0.0-0.7); #Lymphocytes 3.2 thou/uL (1.20-3.40); #Monocytes 1.1 thou/uL (0.11-0.59); #Neutrophils 5.2 thou/uL (1.40-6.50); %Basophils 1.4 % (0.0-1.0); %Eosinophils 3.8 % (0.0-10.0); %Lymphocytes 31.7 % (21.0-51.0); %Monocytes 11.1 % (0.0-10.0); Hemoglobin 16.3 g/dL (14.0-18.0); Mean Corpuscular Hemoglobin 30.5 pg (27.0-31.0); Mean Corpuscular Volume 95.4 fL (78.0-98.0); Mean Platelet Volume 6.7 fL (7.4-10.4); Platelet Count 396 thou/uL (130-400); RBC Distribution Width 12.1 % (11.5-14.5); Red Blood Cell (RBC) Count 5.35 mill/uL (4.70-6.10); White Blood Cell (WBC) Count 10.1 thou/uL (4.8-10.8)
[2018-07-23 09:48] LABS: Anion Gap 16 mmol/L (10-20); BUN (Urea Nitrogen) 7 mg/dL (8.4-25.7); Calc. Creatinine Clearance 0 mL/min (70-130); Calcium 9.6 mg/dL (7.8-10.44); Carbon Dioxide 24 mmol/L (22-29); Chloride 105 mmol/L (98-107); Estimated GFR-MDRD 86; Glucose 95 mg/dL (70-105); Potassium 4.1 mmol/L (3.5-5.1); Sodium 141 mmol/L (136-145)
--- NOTE | 2018-07-23 10:34 | RAD ---
PORTABLE UPRIGHT FRONTAL CHEST RADIOGRAPH: Date: 07/23/18 COMPARISON: 06/17/18. HISTORY: Dyspnea. FINDINGS: No pneumothorax or pleural fluid. No focal consolidation or alveolar edema. Mild diffuse stable incre ased linear interstitial density. IMPRESSION: No acute findings. POS: [facility]
== END 2018-07-23 11:03 | disposition left against medical advice (07) ==
LOC: ERS 08:53
DX: J45.901 Unspecified asthma with (acute) exacerbation (principal); Z87.891 Personal history of nicotine dependence; Z79.899 Other long term (current) drug therapy
CPT/HCPCS: 71045; 80048; 83880; 85025; 94640; 94660; 96374; J2930; J7611

== ENCOUNTER 2018-08-11 10:45 | Emergency (ER) | payer OTHER | END 2018-08-11 12:47 | disposition left against medical advice (07) | LOC: ERS 10:45 | DX: Z53.21 Procedure and treatment not carried out due to patient leaving prior to being seen by health care provider (principal) ==

== ENCOUNTER 2018-08-29 09:18 | Emergency (ER) | payer OTHER | END 2018-08-29 09:54 | disposition home or self-care (01) | LOC: ERS 09:18 | DX: J44.9 Chronic obstructive pulmonary disease, unspecified (principal); Z87.891 Personal history of nicotine dependence; Z79.51 Long term (current) use of inhaled steroids | CPT/HCPCS: 99284 ==

== ENCOUNTER 2018-09-12 19:15 | Emergency (ER) | payer OTHER | END 2018-09-12 19:30 | disposition left against medical advice (07) | LOC: ERS 19:15 | DX: Z53.21 Procedure and treatment not carried out due to patient leaving prior to being seen by health care provider (principal) ==

== ENCOUNTER 2018-10-05 08:16 | Emergency (ER) | payer OTHER | END 2018-10-05 08:41 | disposition home or self-care (01) | LOC: ERS 08:16 | DX: J44.1 Chronic obstructive pulmonary disease with (acute) exacerbation (principal); F41.9 Anxiety disorder, unspecified; Z87.891 Personal history of nicotine dependence; Z79.899 Other long term (current) drug therapy; Z79.51 Long term (current) use of inhaled steroids | CPT/HCPCS: 99284 ==

== ENCOUNTER 2019-01-10 13:07 | Emergency (ER) | payer OTHER ==
[2019-01-10 14:19] LABS: #Eosinphils 0.3 thou/uL (0.0-0.7); #Lymphocytes 3.1 thou/uL (1.20-3.40); #Neutrophils 5.1 thou/uL (1.40-6.50); %Eosinophils 3.5 % (0.0-10.0); %Lymphocytes 32.6 % (21.0-51.0); %Monocytes 10.4 % (0.0-10.0); %Neutrophils 53.6 % (42.0-75.0); Hemoglobin 15.6 g/dL (14.0-18.0); Mean Corpuscular HGB CONC 33.2 g/dL (32.0-36.0); Mean Corpuscular Hemoglobin 31.7 pg (27.0-31.0); Mean Corpuscular Volume 95.7 fL (78.0-98.0); Mean Platelet Volume 6.5 fL (7.4-10.4); Platelet Count 365 thou/uL (130-400); RBC Distribution Width 12.3 % (11.5-14.5); Red Blood Cell (RBC) Count 4.93 mill/uL (4.70-6.10); White Blood Cell (WBC) Count 9.6 thou/uL (4.8-10.8)
[2019-01-10 14:43] LABS: ALT (SGPT) 25 U/L (8-55); AST (SGOT) 24 U/L (5-34); Albumin 4.1 g/dL (3.5-5.0); Alkaline Phosphatase 82 U/L (40-150); Anion Gap 10 mmol/L (10-20); BUN (Urea Nitrogen) 13 mg/dL (8.4-25.7); Bilirubin, Total 0.6 mg/dL (0.2-1.2); Calc. Creatinine Clearance 0 mL/min (70-130); Calcium 9.8 mg/dL (7.8-10.44); Carbon Dioxide 31 mmol/L (22-29); Chloride 103 mmol/L (98-107); Estimated GFR-MDRD 75; Globulin 2.8 g/dL (2.4-3.5); Glucose 90 mg/dL (70-105); Potassium 3.9 mmol/L (3.5-5.1); Protein, Total 6.9 g/dL (6.0-8.3); Sodium 140 mmol/L (136-145)
[2019-01-10 14:54] LABS: CK (CPK) 242 U/L (30-200); Lipase 30 U/L (8-78)
[2019-01-10 14:57] LABS: Bilirubin Small (Negative); Blood, Urine Negative (Negative); Glucose, Urine (Dipstick) Negative (Negative); Leukocyte Negative (Negative); Nitrite Negative (Negative); Protein, Urine (Dipstick) Negative (Neg-Trace); Urobilinogen 0.2 mg/dL (Less than 2)
[2019-01-10 14:59] LABS: Clarity Hazy (Clear)
[2019-01-10 15:06] LABS: RBC/HPF 0-3 HPF (0-3); WBC/HPF 0-3 HPF (0-3)
[2019-01-10 15:07] LABS: Bacteria/HPF None Seen HPF (None Seen)
[2019-01-10] MEDS ORDERED: Ketorolac Tromethamine 30 MG/ML VIAL ONE (15:38)
== END 2019-01-10 15:46 | disposition home or self-care (01) ==
LOC: ERS 13:07
DX: M54.5 Low back pain (principal); E86.0 Dehydration; F41.9 Anxiety disorder, unspecified; J44.9 Chronic obstructive pulmonary disease, unspecified; Z87.891 Personal history of nicotine dependence; Z71.6 Tobacco abuse counseling; Z79.899 Other long term (current) drug therapy; Z79.51 Long term (current) use of inhaled steroids
CPT/HCPCS: 36415; 80053; 81003; 83690; 85025; 94640; 96374; 99406; J1885

== ENCOUNTER 2019-01-11 16:47 | Emergency (ER) | payer OTHER ==
[2019-01-11] MEDS ORDERED: EPINEPHrine 1 MG/ML AMP ONE (20:28)
== END 2019-01-11 17:33 | disposition home or self-care (01) ==
LOC: ERS 16:47
DX: M54.5 Low back pain (principal); J44.9 Chronic obstructive pulmonary disease, unspecified; Z87.891 Personal history of nicotine dependence; F41.9 Anxiety disorder, unspecified; Z79.899 Other long term (current) drug therapy; Z79.51 Long term (current) use of inhaled steroids
CPT/HCPCS: 99281; J0171

== ENCOUNTER 2021-07-16 05:51 | Emergency (ER) | payer MEDICAID | END 2021-07-16 06:15 | disposition left against medical advice (07) | LOC: ERS 05:51 | DX: R06.02 Shortness of breath (principal); R06.2 Wheezing; J44.9 Chronic obstructive pulmonary disease, unspecified; F17.210 Nicotine dependence, cigarettes, uncomplicated | CPT/HCPCS: 99284 ==

== ENCOUNTER 2021-10-12 19:26 | Inpatient (IN) | payer OTHER ==
[2021-10-12 19:57] LABS: Actual Bicarbonate (HCO3a) 23.5 mEq/L (22-28); Analyzer IN Cardio ER; Base Excess (BEa) 0.1 mEq/L (-2.0 to +3.0); CO2 Tension 34.8 mmHg (35.0-45.0); Calcium, Ionized (arterial) 1.09 mmol/L (1.12-1.30); Carboxyhemoglobin (COHb) 0.6 gm% (0.0-3.0); Hemoglobin (Hb) 15.8 g/dL (14.0-18.0); O2 Tension (PaO2), arterial 294.1 mmHg (80.0-100.0); Potassium - ABG Lab 3.44 mmol/L (3.70-5.30); pH, Arterial 7.45 (7.35-7.45)
[2021-10-12] MEDS ORDERED: Albuterol Sulfate 2.5 mg/0.5 ml Neb ONE (20:02)
[2021-10-12] MEDS ORDERED: Albuterol Sulfate 2.5 mg/3 ml Neb ONE ×2 (20:03)
[2021-10-12 20:21] LABS: Hemoglobin 15.2 g/dL (14.0-18.0); Mean Corpuscular HGB CONC 32.8 g/dL (32.0-36.0); Mean Corpuscular Hemoglobin 32.4 pg (27.0-31.0); Mean Corpuscular Volume 98.8 fL (78.0-98.0); Mean Platelet Volume 6.2 fL (7.4-10.4); Platelet Count 333 thou/uL (130-400); RBC Distribution Width 12.5 % (11.5-14.5); Red Blood Cell (RBC) Count 4.68 mill/uL (4.70-6.10); White Blood Cell (WBC) Count 9.6 thou/uL (4.8-10.8)
[2021-10-12 20:23] LABS: ALT (SGPT) 26 U/L (8-55); AST (SGOT) 22 U/L (5-34); Albumin 3.7 g/dL (3.5-5.0); Alkaline Phosphatase 56 U/L (40-110); Anion Gap 13 mmol/L (10-20); BUN (Urea Nitrogen) 7 mg/dL (8.4-25.7); Bilirubin, Total 0.8 mg/dL (0.2-1.2); Calc. Creatinine Clearance 0 mL/min (70-130); Calcium 8.3 mg/dL (7.8-10.44); Carbon Dioxide 26 mmol/L (22-29); Chloride 98 mmol/L (98-107); Globulin 2.7 g/dL (2.4-3.5); Glucose 117 mg/dL (70-105); Magnesium 2.2 mg/dL (1.6-2.6); Potassium 3.4 mmol/L (3.5-5.1); Protein, Total 6.4 g/dL (6.0-8.3); Sodium 134 mmol/L (136-145)
[2021-10-12] MEDS ORDERED: Lorazepam 2 MG/ML VIAL ONE (20:30)
[2021-10-12 20:31] LABS: Puncture Site RRA
[2021-10-12 20:38] LABS: SARS-CoV-2 NAA Rapid Test Not Detected (NotDetected)
[2021-10-12 20:55] LABS: Band 8 % (5-11); Lymphocytes 26 % (21-51); MDiff Complete? YES; Monocytes 15 % (0-10); Neutrophil 51 % (42-75)
[2021-10-12] MEDS ORDERED: Succinylcholine 200 MG/10 ml SYRINGE FS ONE (21:07)
[2021-10-12] MEDS ORDERED: Fentanyl 100 MCG/2 ML VIAL ONE (21:24)
[2021-10-12] MEDS ORDERED: Midazolam HCl 2 mg/2 ml Vial ONE (21:28)
[2021-10-12] MEDS ORDERED: Propofol 1,000 MG/100 ML VIAL IV ONE (21:34)
[2021-10-12 22:06] LABS: Bacteria/HPF None Seen HPF (None Seen); Bilirubin Negative (Negative); Blood, Urine Negative (Negative); Clarity Clear (Clear); Glucose, Urine (Dipstick) Normal (Negative); Ketone, Urine Negative (Negative); Leukocyte Negative Leu/uL (Negative); Nitrite Negative (Negative); Protein, Urine (Dipstick) 30 mg/dL (Neg-Trace); RBC/HPF 0-3 HPF (0-3); Specific Gravity, Urine 1.026 (1.002-1.036); Squamous Epithelial None Seen HPF (0-3); WBC/HPF 0-3 HPF (0-3)
[2021-10-12] MEDS ORDERED: cefTRIAXone\\ROCEPHIN 2 GM VIAL ONE (22:14)
[2021-10-12] MEDS ORDERED: Ondansetron ODT 4 MG TAB SL PRN (22:45)
[2021-10-12] MEDS ORDERED: Ondansetron PF 4 MG/2 ML Vial IVP PRN (22:45)
[2021-10-12] MEDS ORDERED: Azithromycin 500 MG in Sodium Chloride 0.9% 250 ML 250 ML IVPB SCH (23:00)
[2021-10-12] MEDS ORDERED: Fentanyl BOLUS 250 ML IVPB PRN (23:00)
[2021-10-12] MEDS ORDERED: Propofol BOLUS 1,000 MG/100 ML VIAL IV PRN (23:00)
[2021-10-12] MEDS ORDERED: DISCONTINUE PREVIOUS NARCOTIC PAIN MEDICATIONS AND BENZODIAZEPINES FS SCH (23:00)
[2021-10-12 23:28] LABS: Actual Bicarbonate (HCO3a) 20.3 mEq/L (22-28); Base Excess (BEa) -7.4 mEq/L (-2.0 to +3.0); Calcium, Ionized (arterial) 1.11 mmol/L (1.12-1.30); Carboxyhemoglobin (COHb) 0.7 gm% (0.0-3.0); Hemoglobin (Hb) 14.9 g/dL (14.0-18.0); O2 Tension (PaO2), arterial 185.7 mmHg (80.0-100.0); Potassium - ABG Lab 3.94 mmol/L (3.70-5.30)
[2021-10-12 23:29] LABS: pH, Arterial 7.24 (7.35-7.45)
[2021-10-12 23:31] LABS: Puncture Site RRA
[2021-10-13] MEDS ORDERED: Acetaminophen 650 MG Suppository PR PRN
[2021-10-13] MEDS ORDERED: Acetaminophen 325 MG TAB PO PRN
[2021-10-13] MEDS ORDERED: Ventilator Sedation Protocol 1 EACH FS SCH
[2021-10-13] MEDS: Lorazepam 2 MG/ML VIAL SLOW IVP PRN ×4 (00:54→20:05)
[2021-10-13 02:21] LABS: #Lymphocytes 0.3 thou/uL (1.20-3.40); #Monocytes 0.2 thou/uL (0.11-0.59); #Neutrophils 8.1 thou/uL (1.40-6.50); %Eosinophils 0.1 % (0.0-10.0); %Lymphocytes 3.8 % (21.0-51.0); %Monocytes 2.2 % (0.0-10.0); %Neutrophils 93.8 % (42.0-75.0); Mean Corpuscular HGB CONC 32.6 g/dL (32.0-36.0); Mean Corpuscular Hemoglobin 32.6 pg (27.0-31.0); Mean Platelet Volume 6.5 fL (7.4-10.4); Platelet Count 313 thou/uL (130-400); RBC Distribution Width 12.5 % (11.5-14.5); Red Blood Cell (RBC) Count 4.31 mill/uL (4.70-6.10); White Blood Cell (WBC) Count 8.6 thou/uL (4.8-10.8)
[2021-10-13 02:44] LABS: Troponin I 0.027 ng/mL (< 0.028)
[2021-10-13 02:45] LABS: Anion Gap 13 mmol/L (10-20); BUN (Urea Nitrogen) 8 mg/dL (8.4-25.7); Calc. Creatinine Clearance 148 mL/min (70-130); Calcium 7.7 mg/dL (7.8-10.44); Carbon Dioxide 22 mmol/L (22-29); Chloride 103 mmol/L (98-107); Glucose 168 mg/dL (70-105); Potassium 4.4 mmol/L (3.5-5.1); Sodium 134 mmol/L (136-145)
[2021-10-13] MEDS: Propofol 1,000 MG/100 ML VIAL IV PRN ×4 (03:20→20:09)
[2021-10-13] MEDS: Sodium Chloride 0.9% 1,000 ML IV SCH ×3 (03:46→20:36)
[2021-10-13] MEDS ORDERED: Electrolyte Replacement Protocol 1 EACH FS PRN (05:15)
[2021-10-13 06:01] LABS: #Lymphocytes 0.5 thou/uL (1.20-3.40); #Monocytes 0.4 thou/uL (0.11-0.59); %Eosinophils 0.1 % (0.0-10.0); %Lymphocytes 5.7 % (21.0-51.0); %Neutrophils 90.2 % (42.0-75.0); Hemoglobin 14.4 g/dL (14.0-18.0); Mean Corpuscular HGB CONC 32.6 g/dL (32.0-36.0); Mean Corpuscular Hemoglobin 32.6 pg (27.0-31.0); Mean Corpuscular Volume 99.8 fL (78.0-98.0); Mean Platelet Volume 6.3 fL (7.4-10.4); Platelet Count 329 thou/uL (130-400); RBC Distribution Width 12.7 % (11.5-14.5); Red Blood Cell (RBC) Count 4.43 mill/uL (4.70-6.10); White Blood Cell (WBC) Count 8.9 thou/uL (4.8-10.8)
[2021-10-13] MEDS: fentaNYL Citrate-0.9 % NaCl/PF 100 ML IV SCH ×2 (06:13→20:06)
[2021-10-13 06:18] LABS: Anion Gap 14 mmol/L (10-20); BUN (Urea Nitrogen) 9 mg/dL (8.4-25.7); Calc. Creatinine Clearance 153 mL/min (70-130); Calcium 7.8 mg/dL (7.8-10.44); Carbon Dioxide 22 mmol/L (22-29); Chloride 103 mmol/L (98-107); Glucose 162 mg/dL (70-105); Potassium 4.9 mmol/L (3.5-5.1); Sodium 134 mmol/L (136-145)
[2021-10-13 06:19] LABS: Magnesium 2.2 mg/dL (1.6-2.6)
[2021-10-13] MEDS ORDERED: Prevnar 13-Val Conj/PF 0.5 ML SYRINGE IM ONE (07:30)
[2021-10-13] MEDS: Enoxaparin Sodium 40 MG/0.4 ML SYRINGE SC SCH (08:08)
[2021-10-13] MEDS ORDERED: methylPREDNISolone Sod Succ 40 MG VIAL IVP SCH (09:00)
[2021-10-13] MEDS ORDERED: cefTRIAXone\\ROCEPHIN 1 GM in Sodium Chloride 0.9% 100 ML IVPB SCH ×2 (09:00→21:00)
[2021-10-13] MEDS: methylPREDNISolone Sod Succ 40 MG VIAL IVP SCH ×3 (11:26→23:41)
[2021-10-13 12:07] LABS: Amphetamine Not Detected (NotDetected); Barbiturates Screen Not Detected (NotDetected); Benzodiazepine Screen Detected (NotDetected); Cocaine Metabolite Screen Detected (NotDetected); Methadone Not Detected (NotDetected); Methamphetamine Not Detected (NotDetected); Opiate Screen Detected (NotDetected); Oxycodone Screen Not Detected (NotDetected); Phencyclidine (PCP) Not Detected (NotDetected); THC/Cannabinoid Screen Not Detected (NotDetected); Tricyclic Screen Not Detected (NotDetected)
[2021-10-13] MEDS: Vecuronium 10 MG VIAL IV PRN ×3 (12:18→20:05)
[2021-10-13] MEDS ORDERED: Sterile Water 10 ML ONE (19:58)
[2021-10-13] MEDS: cefTRIAXone\\ROCEPHIN 1 GM in Sodium Chloride 0.9% 100 ML IVPB SCH (20:33)
[2021-10-13] MEDS ORDERED: Azithromycin 500 MG in Sodium Chloride 0.9% 250 ML 250 ML IVPB SCH (23:00)
[2021-10-14] MEDS ORDERED: Sterile Water 10 ML ONE ×3 (01:46→14:59)
[2021-10-14] MEDS: Vecuronium 10 MG VIAL IV PRN ×3 (01:48→15:02)
[2021-10-14] MEDS: Lorazepam 2 MG/ML VIAL SLOW IVP PRN ×2 (01:48→15:02)
[2021-10-14 04:02] LABS: Anion Gap 14 mmol/L (10-20); BUN (Urea Nitrogen) 11 mg/dL (8.4-25.7); Calc. Creatinine Clearance 181 mL/min (70-130); Calcium 8.2 mg/dL (7.8-10.44); Carbon Dioxide 26 mmol/L (22-29); Chloride 103 mmol/L (98-107); Glucose 145 mg/dL (70-105); Potassium 4.6 mmol/L (3.5-5.1); Sodium 138 mmol/L (136-145)
[2021-10-14] MEDS: methylPREDNISolone Sod Succ 40 MG VIAL IVP SCH ×3 (05:54→17:11)
[2021-10-14] MEDS: Sodium Chloride 0.9% 1,000 ML IV SCH ×2 (07:53→17:11)
[2021-10-14] MEDS: Enoxaparin Sodium 40 MG/0.4 ML SYRINGE SC SCH (07:57)
[2021-10-14] MEDS: Propofol 1,000 MG/100 ML VIAL IV PRN ×3 (08:52→17:11)
[2021-10-14] MEDS ORDERED: Pantoprazole 40 MG VIAL IVP SCH (09:45)
[2021-10-14] MEDS: fentaNYL Citrate-0.9 % NaCl/PF 100 ML IV SCH (12:18)
[2021-10-14] MEDS ORDERED: Sodium Chloride 0.9% 500 ML IV SCH (17:00)
[2021-10-14] MEDS: cefTRIAXone\\ROCEPHIN 1 GM in Sodium Chloride 0.9% 100 ML IVPB SCH (21:09)
[2021-10-15] MEDS: methylPREDNISolone Sod Succ 40 MG VIAL IVP SCH ×4 (00:04→18:51)
[2021-10-15] MEDS: Propofol 1,000 MG/100 ML VIAL IV PRN ×4 (01:03→23:27)
[2021-10-15] MEDS: Vecuronium 10 MG VIAL IV PRN ×3 (02:33→22:38)
[2021-10-15] MEDS: Lorazepam 2 MG/ML VIAL SLOW IVP PRN ×5 (02:34→20:45)
[2021-10-15] MEDS: Morphine 4 MG/ML VIAL SLOW IVP PRN (03:14)
[2021-10-15] MEDS: Sodium Chloride 0.9% 1,000 ML IV SCH ×2 (04:39→15:26)
[2021-10-15] MEDS: fentaNYL Citrate-0.9 % NaCl/PF 100 ML IV SCH ×2 (04:39→23:26)
[2021-10-15 06:08] LABS: #Eosinphils 0.1 thou/uL (0.0-0.7); #Lymphocytes 0.8 thou/uL (1.20-3.40); #Neutrophils 16.7 thou/uL (1.40-6.50); %Eosinophils 0.4 % (0.0-10.0); %Lymphocytes 4.3 % (21.0-51.0); %Monocytes 5.6 % (0.0-10.0); %Neutrophils 89.6 % (42.0-75.0); Hemoglobin 13.4 g/dL (14.0-18.0); Mean Corpuscular HGB CONC 32.1 g/dL (32.0-36.0); Mean Corpuscular Hemoglobin 32.7 pg (27.0-31.0); Mean Platelet Volume 6.6 fL (7.4-10.4); Platelet Count 365 thou/uL (130-400); RBC Distribution Width 12.7 % (11.5-14.5); Red Blood Cell (RBC) Count 4.08 mill/uL (4.70-6.10); White Blood Cell (WBC) Count 18.6 thou/uL (4.8-10.8)
[2021-10-15 06:29] LABS: Anion Gap 13 mmol/L (10-20); BUN (Urea Nitrogen) 22 mg/dL (8.4-25.7); Calc. Creatinine Clearance 161 mL/min (70-130); Calcium 8.3 mg/dL (7.8-10.44); Carbon Dioxide 26 mmol/L (22-29); Chloride 104 mmol/L (98-107); Glucose 117 mg/dL (70-105); Sodium 138 mmol/L (136-145)
[2021-10-15 08:18] LABS: Actual Bicarbonate (HCO3a) 32.4 mEq/L (22-28); Carboxyhemoglobin (COHb) 0.5 gm% (0.0-3.0); Hemoglobin (Hb) 13.7 g/dL (14.0-18.0); O2 Tension (PaO2), arterial 70.6 mmHg (80.0-100.0); pH, Arterial 7.35 (7.35-7.45)
[2021-10-15 08:19] LABS: CO2 Tension 60.2 mmHg (35.0-45.0)
[2021-10-15 08:20] LABS: Puncture Site RRA
[2021-10-15] MEDS: Polyethylene Glycol 3350 17 GM Packet PER TUBE SCH (08:36)
[2021-10-15] MEDS: Enoxaparin Sodium 40 MG/0.4 ML SYRINGE SC SCH (08:36)
[2021-10-15] MEDS: Pantoprazole 40 MG VIAL IVP SCH (08:36)
[2021-10-15] MEDS: cefTRIAXone\\ROCEPHIN 1 GM in Sodium Chloride 0.9% 100 ML IVPB SCH (20:58)
[2021-10-15] MEDS ORDERED: Sterile Water 10 ML ONE (21:23)
[2021-10-16] MEDS: methylPREDNISolone Sod Succ 40 MG VIAL IVP SCH ×4 (00:24→17:35)
[2021-10-16] MEDS: Vecuronium 10 MG VIAL IV PRN ×2 (00:24→03:16)
[2021-10-16] MEDS: Sodium Chloride 0.9% 1,000 ML IV SCH ×3 (02:16→20:59)
[2021-10-16 04:13] LABS: #Lymphocytes 0.5 thou/uL (1.20-3.40); #Monocytes 0.7 thou/uL (0.11-0.59); #Neutrophils 14.3 thou/uL (1.40-6.50); %Basophils 0.1 % (0.0-1.0); %Eosinophils 0.3 % (0.0-10.0); %Lymphocytes 3.2 % (21.0-51.0); %Monocytes 4.6 % (0.0-10.0); %Neutrophils 91.7 % (42.0-75.0); Hemoglobin 14.1 g/dL (14.0-18.0); Mean Corpuscular HGB CONC 31.9 g/dL (32.0-36.0); Mean Corpuscular Hemoglobin 32.5 pg (27.0-31.0); Mean Platelet Volume 6.5 fL (7.4-10.4); Platelet Count 398 thou/uL (130-400); RBC Distribution Width 12.7 % (11.5-14.5); Red Blood Cell (RBC) Count 4.33 mill/uL (4.70-6.10); White Blood Cell (WBC) Count 15.5 thou/uL (4.8-10.8)
[2021-10-16 04:35] LABS: Anion Gap 14 mmol/L (10-20); BUN (Urea Nitrogen) 30 mg/dL (8.4-25.7); Calc. Creatinine Clearance 182 mL/min (70-130); Calcium 8.3 mg/dL (7.8-10.44); Carbon Dioxide 26 mmol/L (22-29); Chloride 104 mmol/L (98-107); Glucose 151 mg/dL (70-105); Potassium 5.1 mmol/L (3.5-5.1); Sodium 139 mmol/L (136-145)
[2021-10-16] MEDS: hydrALAZINE 20 MG/ML VIAL SLOW IVP PRN ×2 (05:06→06:35)
[2021-10-16] MEDS: Propofol 1,000 MG/100 ML VIAL IV PRN (05:30)
[2021-10-16 08:02] LABS: Actual Bicarbonate (HCO3a) 30.3 mEq/L (22-28); Base Excess (BEa) 0.8 mEq/L (-2.0 to +3.0); Carboxyhemoglobin (COHb) 0.4 gm% (0.0-3.0); Hemoglobin (Hb) 15.5 g/dL (14.0-18.0); O2 Tension (PaO2), arterial 98.3 mmHg (80.0-100.0)
[2021-10-16 08:06] LABS: ALV-art Gradient 63.375 mmHg (0-20); CO2 Tension 70.3 mmHg (35.0-45.0); Puncture Site RRA; pH, Arterial 7.25 (7.35-7.45)
[2021-10-16] MEDS: Polyethylene Glycol 3350 17 GM Packet PER TUBE SCH (08:10)
[2021-10-16] MEDS: Lorazepam 2 MG/ML VIAL SLOW IVP PRN ×4 (08:10→17:35)
[2021-10-16] MEDS: Morphine 4 MG/ML VIAL SLOW IVP PRN ×6 (08:10→20:45)
[2021-10-16] MEDS: Enoxaparin Sodium 40 MG/0.4 ML SYRINGE SC SCH (08:10)
[2021-10-16] MEDS: Pantoprazole 40 MG VIAL IVP SCH (09:35)
[2021-10-16 10:26] VITALS: BP 129/77
[2021-10-16] MEDS ORDERED: Haloperidol Lactate 5 MG/ML VIAL ONE (12:05)
[2021-10-16] MEDS ORDERED: Haloperidol Lactate 5 MG/ML VIAL SLOW IVP PRN (12:05)
[2021-10-16] MEDS ORDERED: diphenhydrAMINE 50 MG/ML VIAL IVP PRN (12:07)
[2021-10-16] MEDS ORDERED: Morphine 4 MG/ML VIAL SLOW IVP PRN (12:08)
[2021-10-16] MEDS ORDERED: Haloperidol Lactate 5 MG/ML VIAL SLOW IVP SCH (12:15)
[2021-10-16 13:07] VITALS: BMI 33.6
[2021-10-16] MEDS: cefTRIAXone\\ROCEPHIN 1 GM in Sodium Chloride 0.9% 100 ML IVPB SCH (20:59)
[2021-10-17] MEDS: Morphine 4 MG/ML VIAL SLOW IVP PRN ×6 (00:08→17:28)
[2021-10-17] MEDS: methylPREDNISolone Sod Succ 40 MG VIAL IVP SCH ×3 (00:16→12:21)
[2021-10-17] MEDS ORDERED: Sterile Water 10 ML VIAL FS SCH (02:00)
[2021-10-17] MEDS ORDERED: Ziprasidone 20 MG VIAL IM SCH (02:00)
[2021-10-17 04:09] LABS: Anion Gap 11 mmol/L (10-20); BUN (Urea Nitrogen) 18 mg/dL (8.4-25.7); Calc. Creatinine Clearance 197 mL/min (70-130); Calcium 8.4 mg/dL (7.8-10.44); Carbon Dioxide 31 mmol/L (22-29); Chloride 100 mmol/L (98-107); Glucose 120 mg/dL (70-105); Sodium 137 mmol/L (136-145)
[2021-10-17 05:06] LABS: Band 7 % (5-11); Hemoglobin 13.9 g/dL (14.0-18.0); Lymphocytes 8 % (21-51); MDiff Complete? YES; Mean Corpuscular HGB CONC 33.2 g/dL (32.0-36.0); Mean Corpuscular Hemoglobin 33.5 pg (27.0-31.0); Mean Platelet Volume 6.4 fL (7.4-10.4); Monocytes 6 % (0-10); Neutrophil 79 % (42-75); Platelet Count 382 thou/uL (130-400); RBC Distribution Width 12.6 % (11.5-14.5); Red Blood Cell (RBC) Count 4.15 mill/uL (4.70-6.10); White Blood Cell (WBC) Count 15.5 thou/uL (4.8-10.8)
[2021-10-17] MEDS: Sodium Chloride 0.9% 1,000 ML IV SCH ×2 (06:41→09:34)
[2021-10-17] MEDS: Lorazepam 2 MG/ML VIAL SLOW IVP PRN ×5 (07:55→17:27)
[2021-10-17] MEDS: Polyethylene Glycol 3350 17 GM Packet PER TUBE SCH (08:33)
[2021-10-17] MEDS: Pantoprazole 40 MG VIAL IVP SCH (08:34)
[2021-10-17] MEDS: Enoxaparin Sodium 40 MG/0.4 ML SYRINGE SC SCH (08:34)
[2021-10-17 08:39] VITALS: TEMP 97.7
[2021-10-17] MEDS ORDERED: Amlodipine 5 MG TAB PO SCH (09:00)
[2021-10-17] MEDS ORDERED: hydrALAZINE 20 MG/ML VIAL SLOW IVP SCH (10:45)
[2021-10-17] MEDS: Ziprasidone 20 MG VIAL IM PRN ×2 (11:01→15:37)
[2021-10-17] MEDS ORDERED: Sterile Water 10 ML ONE (15:36)
[2021-10-17] MEDS ORDERED: Haloperidol Lactate 5 MG/ML VIAL IM SCH (18:15)
[2021-10-18] MEDS ORDERED: Lisinopril 5 MG TAB PO SCH (09:00)
[2021-10-18] MEDS ORDERED: Amlodipine 5 MG TAB PO SCH (09:00)
== END 2021-10-17 19:14 | disposition hospice, inpatient (51) | DRG 208 ==
LOC: ERS 19:26 → CCU 21:20 → T4-B 10-17 18:52
PROVIDERS: ADMIT Student in an Organized Health Care Education/Training Program; ATTEND Hospitalist
PROC: 5A09357 Assistance with Respiratory Ventilation, Less than 24 Consecutive Hours, Continuous Positive Airway Pressure (ICD-10-PCS; principal; 2021-10-12)
PROC: 0DH673Z Insertion of Infusion Device into Stomach, Via Natural or Artificial Opening (ICD-10-PCS; 2021-10-12)
PROC: 5A1945Z Respiratory Ventilation, 24-96 Consecutive Hours (ICD-10-PCS; 2021-10-12)
PROC: 0BH18EZ Insertion of Endotracheal Airway into Trachea, Via Natural or Artificial Opening Endoscopic (ICD-10-PCS; 2021-10-12)
DX: J96.21 Acute and chronic respiratory failure with hypoxia (principal); G93.40 Encephalopathy, unspecified; J43.9 Emphysema, unspecified; H54.7 Unspecified visual loss; F41.9 Anxiety disorder, unspecified; Z66 Do not resuscitate; Z51.5 Encounter for palliative care; Z20.822 Contact with and (suspected) exposure to COVID-19; E87.6 Hypokalemia; F14.10 Cocaine abuse, uncomplicated; J96.02 Acute respiratory failure with hypercapnia; Z99.81 Dependence on supplemental oxygen; Z91.81 History of falling; Z87.891 Personal history of nicotine dependence; Z98.890 Other specified postprocedural states; Z87.81 Personal history of (healed) traumatic fracture; Z79.51 Long term (current) use of inhaled steroids; Z79.899 Other long term (current) drug therapy; Z79.891 Long term (current) use of opiate analgesic; Z91.19 Patient's noncompliance with other medical treatment and regimen
CPT/HCPCS: 31500; 36415; 36416; 36600; 51702; 71045; 74018; 80048; 80053; 80306; 81003; 81015; 82805; 83605; 83735; 83880; 84484; 85025; 93005; 94002; 94003; 94640; 94660; 96365; 96368; 96374; 96375; C9113; J0360; J0456; J0696; J1630; J1650; J2060; J2250; J2270; J2704; J2920; J3010; J3486; J3490; J7030; J7050; J7611; J7620

== ENCOUNTER 2021-10-17 19:25 | Inpatient (IN) | payer OTHER ==
[2021-10-17 19:37] VITALS: TEMP 97.9
[2021-10-17] MEDS ORDERED: Morphine 10 MG/ML VIAL SLOW IVP PRN (20:00)
[2021-10-17] MEDS ORDERED: Lorazepam 2 MG/ML VIAL SLOW IVP PRN (20:01)
[2021-10-17 20:05] VITALS: BMI 32.7
[2021-10-17] MEDS ORDERED: Ondansetron PF 4 MG/2 ML Vial IVP PRN (20:15)
[2021-10-17] MEDS ORDERED: diphenhydrAMINE 50 MG/ML VIAL IVP PRN (20:15)
[2021-10-17] MEDS ORDERED: Haloperidol Lactate 5 MG/ML VIAL SLOW IVP PRN (20:15)
[2021-10-17] MEDS ORDERED: chlorproMAZINE HCl 50 MG/2 ML AMP IM PRN ×2 (20:15)
[2021-10-17] MEDS: Morphine 10 MG/ML VIAL SLOW IVP SCH ×2 (20:20→22:35)
[2021-10-17] MEDS: Lorazepam 2 MG/ML VIAL SLOW IVP SCH ×2 (20:20→22:36)
[2021-10-17] MEDS ORDERED: Scopolamine 1.5 mg/72 hour Patch TOP SCH (21:00)
[2021-10-18] MEDS: Lorazepam 2 MG/ML VIAL SLOW IVP SCH ×10 (00:25→18:05)
[2021-10-18] MEDS: Morphine 10 MG/ML VIAL SLOW IVP SCH ×10 (00:26→18:05)
[2021-10-18 07:44] VITALS: BP 176/93
== END 2021-10-18 17:55 | disposition expired | DRG 951 ==
LOC: T4-B 19:25
PROVIDERS: ADMIT Family Medicine; ATTEND Family Medicine
DX: Z51.5 Encounter for palliative care (principal); J96.21 Acute and chronic respiratory failure with hypoxia; J44.1 Chronic obstructive pulmonary disease with (acute) exacerbation; Z66 Do not resuscitate; F14.10 Cocaine abuse, uncomplicated; Z99.81 Dependence on supplemental oxygen; H54.40 Blindness, one eye, unspecified eye; Z87.891 Personal history of nicotine dependence; Z91.14 Patient's other noncompliance with medication regimen
CPT/HCPCS: J2060; J2270